=== PATIENT | male | born 1960 | race Caucasian/White ===

== ENCOUNTER 2016-09-09 15:43 | Emergency (ER) | payer OTHER ==
[2016-09-09 15:48] VITALS: BP 106/71; PULSE 106; RESP 18; TEMP 97.2
[2016-09-09] MEDS ORDERED: DOCUSATE ORAL SOLN 100 MG/10 ML CUP PO STA ×3 (15:55→16:26)
--- NOTE | 2016-09-09 16:03 | ED ---
ENT HPI - General Chief complaint: ENT Stated complaint: ear pain/trouble hearing Time Seen by Provider: 09/09/16 15:50 Source: patient, RN notes reviewed Mode of arrival: ambulatory Limitations: no limitations - History of Present Illness Initial comments: 55-year-old male presents to the emergency department with a chief complaint of bilateral serum impaction. Patient has been having this for the past week or so. Patient states he has decreased hearing to both ears. Patient denies any pain but states it does feel uncomfortable. Patient denies any other injuries. Patient denies any other complaints.Patient denies any recent fever, chills, shortness of breath, chest pain, back pain, abdominal pain, nausea vomiting, numbness or tingling, dysuria or hematuria, constipation or diarrhea, headaches or visual changes, or any other current symptoms. - Related Data Home Medications Medication Instructions Recorded Confirmed No Known Home Medications [No 09/09/16 09/09/16 Known Home Medications] Allergies Allergy/AdvReac Type Severity Reaction Status Date / Time Penicillins Allergy Rash/Hives Verified 09/09/16 15:47 Review of Systems ROS Statement: Those systems with pertinent positive or pertinent negative responses have been documented in the HPI. ROS Other: All systems not noted in ROS Statement are negative. Past Medical History Past Medical History: No Reported History History of Any Multi-Drug Resistant Organisms: None Reported Additional Past Surgical History / Comment(s): leg surgery Past Psychological History: No Psychological Hx Reported Smoking Status: Never smoker Past Alcohol Use History: None Reported Past Drug Use History: None Reported General Exam Limitations: no limitations General appearance: alert, in no apparent distress Head exam: Present: atraumatic, normocephalic, normal inspection Eye exam: Present: normal appearance, PERRL, EOMI. Absent: scleral icterus, conjunctival injection, periorbital swelling Expanded Ear exam: Present: normal external inspection TM/Canal exam: Cerumen Impaction: Right TM, Left TM Mouth exam: Present: normal external inspection Throat exam: normal inspection, tonsillar erythema Neck exam: Present: normal inspection. Absent: tenderness, meningismus, lymphadenopathy Respiratory exam: Present: normal lung sounds bilaterally. Absent: respiratory distress, wheezes, rales, rhonchi, stridor Cardiovascular Exam: Present: regular rate, normal rhythm, normal heart sounds. Absent: systolic murmur, diastolic murmur, rubs, gallop, clicks Neurological exam: Present: alert, oriented X3 Psychiatric exam: Present: normal affect, normal mood Skin exam: Present: warm, dry, intact, normal color. Absent: rash Course Vital Signs 09/09/16 15:44 Temperature 97.2 F L Pulse Rate 106 H Respiratory 18 Rate Blood Pressure 106/71 O2 Sat by Pulse 97 Oximetry Procedures - Ear Wax Removal Both Ears Cerumenolytic Used: Colace Ear Canal Irrigated by: other (PA) Ear Canal Irrigated With: ear cloth mender device Ear Canal(s) Curetted: plastic scoops Results: Re-examined: some cerumen remains TM Visible: TM(s) intact, normal appearance Ear Canal: atraumatic Patient Tolerated Procedure: well Complications: no problems Medical Decision Making - Medical Decision Making 55-year-old male presents to the emergency department with a chief complaint of bilateral serum impaction. At this time patient underwent irrigation majority of care was removed. This time we discussed. We discussed follow-up and return parameters. We discussed all patient's questions. He stated he understood the plan. At this time he will be discharged home. Disposition Clinical Impression: Bilateral impacted cerumen Disposition: HOME SELF-CARE Condition: Stable Instructions: Cerumen Impaction (ED) Additional Instructions: Please use medication as discussed. Please follow up with family doctor if symptoms have not improved over the next two days. Please return to the emergency room if your symptoms increase or worsen or for any other concerns. Referrals: None,Stated [Primary Care Provider] - 1-2 days Enoch Cano MD [STAFF PHYSICIAN] - 1-2 days Time of Disposition: 17:22
== END 2016-09-09 17:28 | disposition home or self-care (01) ==
LOC: EC 15:43
DX: H61.23 Impacted cerumen, bilateral (principal); Z88.0 Allergy status to penicillin
CPT/HCPCS: 69210; 99283

== ENCOUNTER 2019-03-03 09:06 | Emergency (ER) | payer OTHER ==
[2019-03-03 09:22] VITALS: BP 134/84; PULSE 68; RESP 18; TEMP 98.7
[2019-03-03] MEDS ORDERED: CARBAMIDE PEROXIDE 6.5% DROPS 15 ML BTL BOTH EARS STA (09:55)
--- NOTE | 2019-03-03 09:59 | ED ---
ENT HPI - General Chief complaint: ENT Stated complaint: plugged ears Time Seen by Provider: 03/03/19 09:32 Source: patient, RN notes reviewed, old records reviewed Mode of arrival: ambulatory Limitations: no limitations - History of Present Illness Initial comments: This is a 58-year-old male, who presents emergency department today for evaluation for complaints of bilateral ear congestion. He reports that his ear has been plugged for months. Patient states that he decided to come in today because he felt like it. Patient states that he is came to emergency department for an his ears cleaned. Patient states that he has a hard time hearing out of his ears. Patient states that the left ear is worse than his right. - Related Data Home Medications Medication Instructions Recorded Confirmed No Known Home Medications 09/09/16 09/09/16 Allergies Allergy/AdvReac Type Severity Reaction Status Date / Time Penicillins Allergy Rash/Hives Verified 03/03/19 09:22 Review of Systems ROS Statement: Those systems with pertinent positive or pertinent negative responses have been documented in the HPI. ROS Other: All systems not noted in ROS Statement are negative. Past Medical History Past Medical History: No Reported History History of Any Multi-Drug Resistant Organisms: None Reported Additional Past Surgical History / Comment(s): leg surgery Past Psychological History: No Psychological Hx Reported Smoking Status: Never smoker Past Alcohol Use History: None Reported Past Drug Use History: None Reported General Exam - General Exam Comments Initial Comments: 58-year-old male. Alert and oriented. No distress. Limitations: no limitations General appearance: alert, in no apparent distress Head exam: Present: atraumatic, normocephalic, normal inspection Eye exam: Present: normal appearance, PERRL, EOMI. Absent: scleral icterus, conjunctival injection, periorbital swelling ENT exam: Present: normal exam, normal oropharynx, other ( Patient has cerumen impaction bilaterally.) Neck exam: Present: normal inspection. Absent: tenderness, meningismus, lymphadenopathy Respiratory exam: Present: normal lung sounds bilaterally. Absent: respiratory distress, wheezes, rales, rhonchi, stridor Cardiovascular Exam: Present: regular rate. Absent: clicks Extremities exam: Present: normal inspection, full ROM, normal capillary refill. Absent: tenderness, pedal edema, joint swelling, calf tenderness Neurological exam: Present: alert, oriented X3 Psychiatric exam: Present: normal affect, agitated (hostile mood. ) Course Vital Signs 03/03/19 09:19 Temperature 98.7 F Pulse Rate 68 Respiratory 18 Rate Blood Pressure 134/84 O2 Sat by Pulse 99 Oximetry - Reevaluation(s) Reevaluation #1: 03/03/19 10:10 Patient is very rude to nursing staff and they attempted to irrigate his ears, drainage TV out, yelling at the water is not warm enough. We discussed to to the Patient a call matter that did not water does not get warmer as it is on automatic temperature Patient became upset. Medical Decision Making - Medical Decision Making 58-year-old male presents today for bilateral ear congestion, complaining of determine impaction. This time Patient is quite hostile. And he states that he just fell he coming in today. Patient was offered D Ross drops and irrigation. When the nurse attempted to irrigate the ears he became irate, and not tolerating well, moving around the bed. Patient Patient will be discharged at this time with the debrox drops and ENT referral. Discussed the ER is not appropriate to manage chronic ear cerumen impactions. Disposition Clinical Impression: Cerumen impaction, Mood disorder, Hostile behavior Disposition: HOME SELF-CARE Condition: Good Instructions (If sedation given, give patient instructions): Cerumen Impaction (ED) Additional Instructions: Patient is to follow-up with her nose and throat specialist for cerumen removal. He can use the Debrox drops to help loosen the cerumen prior to going to have the cerumen removed. Follow up with a PCP. Is patient prescribed a controlled substance at d/c from ED?: No Referrals: None,Stated [Primary Care Provider] - 1-2 days Phong Carranza DO [Doctor of Osteopathic Medicine] - 1-2 days Kaylin Hinds MD [STAFF PHYSICIAN] - 1-2 days Time of Disposition: 10:12
== END 2019-03-03 10:13 | disposition home or self-care (01) ==
LOC: EC 09:06
DX: H61.23 Impacted cerumen, bilateral (principal); F39 Unspecified mood [affective] disorder; R45.5 Hostility; Z88.0 Allergy status to penicillin
CPT/HCPCS: 99282

== ENCOUNTER 2019-04-30 19:39 | Emergency (ER) | payer OTHER ==
[2019-04-30 19:44] VITALS: BP 125/78; PULSE 84; RESP 20; TEMP 97.8
[2019-04-30] MEDS ORDERED: CARBAMIDE PEROXIDE 6.5% DROPS 15 ML BTL BOTH EARS STA (19:50)
--- NOTE | 2019-04-30 20:25 | ED ---
General Adult HPI - General Chief complaint: ENT Stated complaint: Wants ears cleaned Time Seen by Provider: 04/30/19 19:46 Source: patient, family Mode of arrival: ambulatory Limitations: no limitations - History of Present Illness Initial comments: 58-year-old male patient presents to the emergency department today requesting ear irrigation. Patient states that he has having discomfort and decreased hearing to both ears. Patient states he often has wax plugging his ears. He does not have a primary care physician. Does not currently have insurance. Denies any methods at home to relieve blockages. Denies any drainage from the ears. Denies fever or chills. Denies recent upper respiratory illness. - Related Data Home Medications Medication Instructions Recorded Confirmed No Known Home Medications 09/09/16 09/09/16 Allergies Allergy/AdvReac Type Severity Reaction Status Date / Time Penicillins Allergy Rash/Hives Verified 04/30/19 19:44 Review of Systems ROS Statement: Those systems with pertinent positive or pertinent negative responses have been documented in the HPI. ROS Other: All systems not noted in ROS Statement are negative. Past Medical History Past Medical History: No Reported History History of Any Multi-Drug Resistant Organisms: None Reported Additional Past Surgical History / Comment(s): leg surgery Past Psychological History: No Psychological Hx Reported Smoking Status: Never smoker Past Alcohol Use History: None Reported Past Drug Use History: None Reported General Exam Limitations: no limitations General appearance: alert, in no apparent distress, other ENT exam: Present: normal oropharynx. Absent: TM's normal bilaterally (Bilateral cerumen impaction) Respiratory exam: Present: normal lung sounds bilaterally. Absent: respiratory distress, wheezes, rales, rhonchi, stridor Cardiovascular Exam: Present: regular rate, normal rhythm, normal heart sounds. Absent: systolic murmur, diastolic murmur, rubs, gallop, clicks Neurological exam: Present: alert, oriented X3, CN II-XII intact Psychiatric exam: Present: normal affect, normal mood Skin exam: Present: warm, dry, intact, normal color. Absent: rash Course Vital Signs 04/30/19 04/30/19 19:41 21:34 Temperature 97.8 F 97.8 F Pulse Rate 84 84 Respiratory 20 20 Rate Blood Pressure 125/78 125/78 O2 Sat by Pulse 97 97 Oximetry Medical Decision Making - Medical Decision Making 58-year-old male patient presents the emergency department today for evaluation of bilateral cerumen impaction. We did use Debrox drops and attempted flushing. The wax is hardened. He will be discharged with drops and instructions to instill drops daily to loosen wax. He is educated regarding flushing is ears. He is instructed to follow up with his primary care physician for recheck in 1-2 days. Return parameters discussed in detail. He verbalizes understanding and agrees with this plan. Disposition Clinical Impression: Impacted cerumen, bilateral Disposition: HOME SELF-CARE Condition: Good Instructions (If sedation given, give patient instructions): Cerumen Impaction (ED) Additional Instructions: Use ear drops daily to loosen wax. Flush with tepid water. [facility] Return to the emergency department for any new, worsening, or concerning symptoms. Is patient prescribed a controlled substance at d/c from ED?: No [facility] [[facility]] - 1-2 days Time of Disposition: 21:30
== END 2019-04-30 21:35 | disposition home or self-care (01) ==
LOC: EC 19:39
DX: H61.23 Impacted cerumen, bilateral (principal); Z88.0 Allergy status to penicillin
CPT/HCPCS: 99283

== ENCOUNTER 2019-07-19 19:57 | Emergency (ER) | payer MEDICARE ==
[2019-07-19 20:12] VITALS: BP 119/76; PULSE 92; RESP 18; TEMP 101.6
[2019-07-19] MEDS ORDERED: IBUPROFEN 600 MG TAB PO STA (21:38)
--- NOTE | 2019-07-19 22:15 | XR ---
EXAMINATION TYPE: XR chest 2V DATE OF EXAM: 07/19/2019 COMPARISON: 03/16/2016 HISTORY: Cough TECHNIQUE: FINDINGS: Heart and mediastinum are normal. Lungs are clear. Diaphragm is normal. Bony thorax is inta ct. IMPRESSION: No active cardiopulmonary disease. No adverse change compared to old exam.
--- NOTE | 2019-07-19 22:35 | ED ---
Fever HPI - General Chief Complaint: Fever Stated Complaint: Flu Symptoms Time Seen by Provider: 07/19/19 21:32 Source: patient Mode of arrival: wheelchair Limitations: no limitations - History of Present Illness Initial Comments: Patient is a 58-year-old male presenting to emergency Department with complaints of fever, cough for 2 weeks now. He states his symptoms have gotten worse the last few days. He has not been taking any medications. He denies history of asthma or COPD. he denies abdominal pain, nausea, vomiting. He denies chest pain, shortness of breath. He denies recent travel. Patient states he's been eating and drinking as normal. He has no other complaints at this time. Upon arrival to the ER, patient was febrile at 101.2, rest of vitals are normal. - Related Data Previous Rx's Medication Instructions Recorded Azithromycin [Zithromax Z-pack] 0 mg PO DIRECTED #1 pack 07/19/19 Ibuprofen [Motrin] 600 mg PO Q8HR PRN #20 tab 07/19/19 Allergies Allergy/AdvReac Type Severity Reaction Status Date / Time Penicillins Allergy Rash/Hives Verified 07/19/19 20:11 Review of Systems ROS Statement: Those systems with pertinent positive or pertinent negative responses have been documented in the HPI. ROS Other: All systems not noted in ROS Statement are negative. Past Medical History Past Medical History: No Reported History History of Any Multi-Drug Resistant Organisms: None Reported Past Surgical History: Orthopedic Surgery Additional Past Surgical History / Comment(s): leg surgery Past Psychological History: No Psychological Hx Reported Smoking Status: Never smoker Past Alcohol Use History: None Reported Past Drug Use History: None Reported General Exam - General Exam Comments Initial Comments: GENERAL: Strong body odor, and in no acute distress. Resting comfortably. HEAD: Atraumatic, normocephalic. EYES: Pupils equal round and reactive to light, extraocular movements intact, sclera anicteric, conjunctiva are normal. ENT: TMs normal, nares patent, oropharynx clear without exudates. Moist mucous membranes. NECK: Normal range of motion, supple without lymphadenopathy or JVD. LUNGS: Breath sounds clear to auscultation bilaterally and equal. No wheezes rales or rhonchi. HEART: Regular rate and rhythm without murmurs, rubs or gallops. ABDOMEN: Soft, nontender, normoactive bowel sounds. No guarding, no rebound. No masses appreciated. : Deferred EXTREMITIES: Normal range of motion, no pitting or edema. No clubbing or cyanosis. NEUROLOGICAL: Normal speech, normal gait. PSYCH: Normal mood, normal affect. SKIN: Warm, Dry, normal turgor, no rashes or lesions noted. Limitations: no limitations Course Vital Signs 07/19/19 07/19/19 20:09 22:38 Temperature 101.6 F H Pulse Rate 92 Respiratory 18 18 Rate Blood Pressure 119/76 O2 Sat by Pulse 97 Oximetry Medical Decision Making - Medical Decision Making Patient is a 58-year-old male presenting with flulike symptoms for 2 weeks. Patient was febrile upon arrival. Chest x-ray shows no acute abnormalities. Influenza test was positive. His 50s findings with the patient. Patient was gi alexsander Motrin in the ER. He is eating and drinking. He is stable for discharge. Patient is really adamant about getting an antibiotic since he's been sick for 2 weeks. I discussed that he has a virus and that the antibiotic was not necessary however he continues to be adamant. Patient will be given azithromycin as well as prescription for ibuprofen as requested. Return parameters were discussed with the patient and he verbalized understanding. Case discussed with Dr. Estevez. - Lab Data Lab Results 07/19/19 Range/Units 20:13 Influenza Type A RNA Detected H (Not Detectd) Influenza Type B (PCR) Not Detected (Not Detectd) Disposition Clinical Impression: Influenza Disposition: HOME SELF-CARE Condition: Stable Instructions (If sedation given, give patient instructions): Influenza (ED) Additional Instructions: Please return to the Emergency Department if symptoms worsen or any other concerns. Take ibuprofen as needed for fever. Take antibiotic as prescribed. Prescriptions: Ibuprofen [Motrin] 600 mg PO Q8HR PRN #20 tab PRN Reason: Pain Azithromycin [Zithromax Z-pack] 0 mg PO DIRECTED #1 pack Is patient prescribed a controlled substance at d/c from ED?: No Referrals: None,Stated [Primary Care Provider] - 1-2 days
== END 2019-07-19 23:00 | disposition home or self-care (01) ==
LOC: EC 19:57
DX: J11.1 Influenza due to unidentified influenza virus with other respiratory manifestations (principal); Z88.0 Allergy status to penicillin
CPT/HCPCS: 71046; 87502; 99283

== ENCOUNTER 2020-04-01 18:03 | Emergency (ER) | payer MEDICARE ==
--- NOTE | 2020-04-01 18:44 | ED ---
General Adult HPI - General Chief complaint: ENT Stated complaint: ears plugged Time Seen by Provider: 04/01/20 18:05 Source: patient, RN notes reviewed, old records reviewed Mode of arrival: ambulatory Limitations: no limitations - History of Present Illness Initial comments: This is a 59-year-old male who presents to the emergency department complaining that his ears are plugged bilaterally. Patient states this happens once urinate some cleaned out once here. Patient states never attempted to do any Cleaning home with [id number] medications. Patient states his hearing is a little bit decreased but it's more muffled than anything else. Patient denies any pain. Patient denies any fever chills per patient denies any other complaints at this time. - Related Data Previous Rx's Medication Instructions Recorded Azithromycin [Zithromax Z-pack (6 0 mg PO DIRECTED #1 pack 07/19/19 tabs)] Ibuprofen [Motrin] 600 mg PO Q8HR PRN #20 tab 07/19/19 Allergies Allergy/AdvReac Type Severity Reaction Status Date / Time Penicillins Allergy Rash/Hives Verified 04/01/20 18:04 Review of Systems ROS Statement: Those systems with pertinent positive or pertinent negative responses have been documented in the HPI. ROS Other: All systems not noted in ROS Statement are negative. Past Medical History Past Medical History: No Reported History History of Any Multi-Drug Resistant Organisms: None Reported Past Surgical History: Orthopedic Surgery Additional Past Surgical History / Comment(s): leg surgery Past Psychological History: No Psychological Hx Reported Smoking Status: Never smoker Past Alcohol Use History: None Reported Past Drug Use History: None Reported General Exam - General Exam Comments Initial Comments: GENERAL Patient is well-developed and well-nourished. Patient is in mild distress. EYES Patient's pupils are equal and round. Extraocular motion is intact SKIN Unremarkable NEURO The patient is alert and oriented 3 PYSCH Patient has normal interpersonal interactions. MUSCULOSKELETAL ENT Patient's ears bilaterally are filled with cerumen Limitations: no limitations Course Vital Signs 04/01/20 18:04 Temperature 98 F Pulse Rate 92 Respiratory 18 Rate Blood Pressure 113/79 O2 Sat by Pulse 97 Oximetry Medical Decision Making - Medical Decision Making Nursing irrigated the patient's ears out. Disposition Clinical Impression: Impacted cerumen of both ears Disposition: HOME SELF-CARE Condition: Good Instructions (If sedation given, give patient instructions): Cerumen Impaction (ED) Additional Instructions: Patient should purchase [id number] ear removal wax kits. Is patient prescribed a controlled substance at d/c from ED?: No Referrals: None,Stated [Primary Care Provider] - 1-2 days Time of Disposition: 18:44
[2020-04-01 20:47] VITALS: BP 144/74; PULSE 77; RESP 20; TEMP 97.9
== END 2020-04-01 20:45 | disposition home or self-care (01) ==
LOC: EC 18:03
DX: H61.23 Impacted cerumen, bilateral (principal); Z88.0 Allergy status to penicillin
CPT/HCPCS: 99283

== ENCOUNTER 2020-05-14 09:30 | Emergency (ER) | payer MEDICARE ==
[2020-05-14 09:39] VITALS: RESP 18; TEMP 98.3
--- NOTE | 2020-05-14 10:18 | ED ---
SOB HPI - General Chief Complaint: Shortness of Breath Stated Complaint: KANWAL Time Seen by Provider: 05/14/20 09:35 Source: patient Mode of arrival: ambulatory Limitations: no limitations - History of Present Illness Initial Comments: Patient is a 59-year-old male with no past medical history presents emergency Department with reported nausea, vomiting, abdominal pain or shortness of breath. Patient reports that yesterday he did eat some cheese that he thought may have been spoiled. Subsequently afterwards he developed abdominal cramping and had approximately 5 episodes of nonbilious, nonbloody vomit. Reports that he took one of his friends Percocets for his symptoms. He did have associated shortness of breath without chest pain. Denies sick contacts with similar symptoms. The ports that he awoke this morning and his symptoms were completely gone however he still wanted to come to the emergency department to be evaluated. He denies any recent travel. No current chest pain or shortness of breath. No abdominal pain. Denies fevers or cough. No other alleviating, precipitating or modifying factors - Related Data Home Medications Medication Instructions Recorded Confirmed No Known Home Medications 05/14/20 05/14/20 Allergies Allergy/AdvReac Type Severity Reaction Status Date / Time Penicillins Allergy Rash/Hives Verified 05/14/20 11:16 Review of Systems ROS Statement: Those systems with pertinent positive or pertinent negative responses have been documented in the HPI. ROS Other: All systems not noted in ROS Statement are negative. Past Medical History Past Medical History: No Reported History History of Any Multi-Drug Resistant Organisms: None Reported Past Surgical History: Orthopedic Surgery Additional Past Surgical History / Comment(s): leg surgery Past Psychological History: No Psychological Hx Reported Smoking Status: Never smoker Past Alcohol Use History: None Reported Past Drug Use History: Marijuana General Exam Limitations: no limitations General appearance: alert, in no apparent distress Head exam: Present: atraumatic, normocephalic, normal inspection Eye exam: Present: normal appearance, PERRL, EOMI. Absent: scleral icterus, co njunctival injection, periorbital swelling ENT exam: Present: normal exam, mucous membranes moist Neck exam: Present: normal inspection. Absent: tenderness, meningismus, lymphadenopathy Respiratory exam: Present: normal lung sounds bilaterally. Absent: respiratory distress, wheezes, rales, rhonchi, stridor Cardiovascular Exam: Present: regular rate, normal rhythm, normal heart sounds. Absent: systolic murmur, diastolic murmur, rubs, gallop, clicks GI/Abdominal exam: Present: soft, normal bowel sounds. Absent: distended, tenderness, guarding, rebound, rigid Extremities exam: Present: normal inspection, full ROM, normal capillary refill. Absent: tenderness, pedal edema, joint swelling, calf tenderness Back exam: Present: normal inspection Neurological exam: Present: alert, oriented X3, CN II-XII intact Psychiatric exam: Present: normal affect, normal mood Skin exam: Present: warm, dry, intact, normal color. Absent: rash Course Vital Signs 05/14/20 05/14/20 05/14/20 09:33 10:38 11:42 Temperature 98.3 F Pulse Rate 100 82 73 Respiratory 18 18 18 Rate Blood Pressure 148/76 126/82 119/80 O2 Sat by Pulse 96 97 99 Oximetry Medical Decision Making - Medical Decision Making Upon arrival patient is placed into room 2. A thorough history and physical exam was performed. 12-lead EKG was performed. Peripheral IV is established. The patient was started on 2 L bolus of normal saline. Laboratory studies were conducted. White count is 16.2. Lactic acid 3.8. Glucose elevated at 245. Coronavirus is not detected. Chest x-ray demonstrates no acute process. Results are discussed the patient. States he feels comfortable for discharge home at this time as he is not currently symptomatic. I did recommend that the patient follow up with his primary care doctor due to his elevated glucose. Patient reports that he does not have a primary care doctor and normally does not care to see one. I did inform him of the concern for uncontrolled glucose levels for which the patient does understand the risks. [facility] Patient's will be discharged home at this time. Return to the emergency department should he have any new or worsening symptoms. Patient was in agreement with this treatment plan and he was discharged home in stable condition - Lab Data Result diagrams: 05/14/20 10:21 05/14/20 10: Lab Results 05/14/20 05/14/20 05/14/20 Range/Units 10:21 10:21 10:21 WBC 16.2 H (3.8-10.6) k/uL RBC 5.49 (4.30-5.90) m/uL Hgb 15.5 (13.0-17.5) gm/dL Hct 47.2 (39.0-53.0) % MCV 86.0 (80.0-100.0) fL MCH 28.2 (25.0-35.0) pg MCHC 32.8 (31.0-37.0) g/dL RDW 14.8 (11.5-15.5) % Plt Count 270 (150-450) k/uL MPV 6.5 Neutrophils % 91 % Lymphocytes % 6 % Monocytes % 2 % Eosinophils % 1 % Basophils % 1 % Neutrophils # 14.7 H (1.3-7.7) k/uL Lymphocytes # 0.9 L (1.0-4.8) k/uL Monocytes # 0.4 (0-1.0) k/uL Eosinophils # 0.1 (0-0.7) k/uL Basophils # 0.1 (0-0.2) k/uL PT 10.4 (9.0-12.0) sec INR 1.0 (<1.2) APTT 24.0 (22.0-30.0) sec Sodium 135 L (137-145) mmol/L Potassium 4.6 (3.5-5.1) mmol/L Chloride 101 (98-107) mmol/L Carbon Dioxide 25 (22-30) mmol/L Anion Gap 9 mmol/L BUN 16 (9-20) mg/dL Creatinine 0.74 (0.66-1.25) mg/dL Est GFR (CKD-EPI)AfAm >90 (>60 ml/min/1.73 sqM) Est GFR (CKD-EPI)NonAf >90 (>60 ml/min/1.73 sqM) Glucose 245 H (74-99) mg/dL Lactic Ac Sepsis Rflx Plasma Lactic Acid Jer (0.7-2.0) mmol/L Calcium 9.7 (8.4-10.2) mg/dL Total Bilirubin 0.7 (0.2-1.3) mg/dL AST 27 (17-59) U/L ALT 26 (4-49) U/L Alkaline Phosphatase 81 (38-126) U/L Troponin I (0.000-0.034) ng/mL NT-Pro-B Natriuret Pep pg/mL Total Protein 7.3 (6.3-8.2) g/dL Albumin 4.1 (3.5-5.0) g/dL Lipase 136 (23-300) U/L Coronavirus (PCR) (Not Detectd) 05/14/20 05/14/20 05/14/20 Range/Units 10:21 10:21 10:21 WBC (3.8-10.6) k/uL RBC (4.30-5.90) m/uL Hgb (13.0-17.5) gm/dL Hct (39.0-53.0) % MCV (80.0-100.0) fL MCH (25.0-35.0) pg MCHC (31.0-37.0) g/dL RDW (11.5-15.5) % Plt Count (150-450) k/uL MPV Neutrophils % % Lymphocytes % % Monocytes % % Eosinophils % % Basophils % % Neutrophils # (1.3-7.7) k/uL Lymphocytes # (1.0-4.8) k/uL Monocytes # (0-1.0) k/uL Eosinophils # (0-0.7) k/uL Basophils # (0-0.2) k/uL PT (9.0-12.0) sec INR (<1.2) APTT (22.0-30.0) sec Sodium (137-145) mmol/L Potassium (3.5-5.1) mmol/L Chloride (98-107) mmol/L Carbon Dioxide (22-30) mmol/L Anion Gap mmol/L BUN (9-20) mg/dL Creatinine (0.66-1.25) mg/dL Est GFR (CKD-EPI)AfAm (>60 ml/min/1.73 sqM) Est GFR (CKD-EPI)NonAf (>60 ml/min/1.73 sqM) Glucose (74-99) mg/dL Lactic Ac Sepsis Rflx Plasma Lactic Acid Jer 3.8 H* (0.7-2.0) mmol/L Calcium (8.4-10.2) mg/dL Total Bilirubin (0.2-1.3) mg/dL AST (17-59) U/L ALT (4-49) U/L Alkaline Phosphatase (38-126) U/L Troponin I <0.012 (0.000-0.034) ng/mL NT-Pro-B Natriuret Pep 108 pg/mL Total Protein (6.3-8.2) g/dL Albumin (3.5-5.0) g/dL Lipase (23-300) U/L Coronavirus (PCR) (Not Detectd) 05/14/20 05/14/20 Range/Units 10:51 11:41 WBC (3.8-10.6) k/uL RBC (4.30-5.90) m/uL Hgb (13.0-17.5) gm/dL Hct (39.0-53.0) % MCV (80.0-100.0) fL MCH (25.0-35.0) pg MCHC (31.0-37.0) g/dL RDW (11.5-15.5) % Plt Count (150-450) k/uL MPV Neutrophils % % Lymphocytes % % Monocytes % % Eosinophils % % Basophils % % Neutrophils # (1.3-7.7) k/uL Lymphocytes # (1.0-4.8) k/uL Monocytes # (0-1.0) k/uL Eosinophils # (0-0.7) k/uL Basophils # (0-0.2) k/uL PT (9.0-12.0) sec INR (<1.2) APTT (22.0-30.0) sec Sodium (137-145) mmol/L Potassium (3.5-5.1) mmol/L Chloride (98-107) mmol/L Carbon Dioxide (22-30) mmol/L Anion Gap mmol/L BUN (9-20) mg/dL Creatinine (0.66-1.25) mg/dL Est GFR (CKD-EPI)AfAm (>60 ml/min/1.73 sqM) Est GFR (CKD-EPI)NonAf (>60 ml/min/1.73 sqM) Glucose (74-99) mg/dL Lactic Ac Sepsis Rflx Y Plasma Lactic Acid Jer (0.7-2.0) mmol/L Calcium (8.4-10.2) mg/dL Total Bilirubin (0.2-1.3) mg/dL AST (17-59) U/L ALT (4-49) U/L Alkaline Phosphatase (38-126) U/L Troponin I (0.000-0.034) ng/mL NT-Pro-B Natriuret Pep pg/mL Total Protein (6.3-8.2) g/dL Albumin (3.5-5.0) g/dL Lipase (23-300) U/L Coronavirus (PCR) Not Detected (Not Detectd) - EKG Data EKG Comments: EKG demonstrates normal sinus rhythm with a ventricular rate of 87. OK interval 174. QRS 138. QTC of 498. Right bundle branch block. No acute ST segment elevations. Disposition Clinical Impression: Nausea and vomiting Disposition: HOME SELF-CARE Condition: Stable Instructions (If sedation given, give patient instructions): Acute Nausea and Vomiting (ED) Additional Instructions: Please follow up with your PCP in 2-4 days. You need to have your sugars checked. Return to the emergency room for any new or worsening symptoms Is patient prescribed a controlled substance at d/c from ED?: No [facility]errals: [facility] [[facility] - 1-2 days Time of Disposition: 12:45
[2020-05-14 10:33] LABS: Basophils # (A) 0.1 k/uL (0-0.2); Basophils % (A) 1 %; Eosinophils # (A) 0.1 k/uL (0-0.7); Eosinophils % (A) 1 %; HCT 47.2 % (39.0-53.0); HGB 15.5 gm/dL (13.0-17.5); Lymphocytes # (A) 0.9 k/uL (1.0-4.8); Lymphocytes % (A) 6 %; MCH 28.2 pg (25.0-35.0); MCHC 32.8 g/dL (31.0-37.0); Mean Platelet Volume 6.5; Monocytes # (A) 0.4 k/uL (0-1.0); Monocytes % (A) 2 %; Neutrophils # (A) 14.7 k/uL (1.3-7.7); Neutrophils % (A) 91 %; Platelet Count 270 k/uL (150-450); RBC 5.49 m/uL (4.30-5.90); RDW 14.8 % (11.5-15.5); WBC 16.2 k/uL (3.8-10.6)
--- NOTE | 2020-05-14 10:33 | XR ---
EXAMINATION TYPE: XR chest 2V DATE OF EXAM: 05/14/2020 COMPARISON: 07/19/2019 INDICATION: Difficulty breathing TECHNIQUE: Frontal and lateral views of the chest are obtained. FINDINGS: The heart size is normal. The pulmonary vasculature is normal. The lungs are clear. IMPRESSION: 1. No acute pulmonary process.
[2020-05-14 10:41] LABS: ALT 26 U/L (4-49); AST 27 U/L (17-59); African American GFR (CKD) >90 (>60 ml/min/1.73 sqM); Albumin 4.1 g/dL (3.5-5.0); Alkaline Phosphatase 81 U/L (38-126); Anion Gap 9 mmol/L; Blood Urea Nitrogen 16 mg/dL (9-20); Calcium 9.7 mg/dL (8.4-10.2); Carbon Dioxide 25 mmol/L (22-30); Chloride 101 mmol/L (98-107); Glucose 245 mg/dL (74-99); Lipase 136 U/L (23-300); Non-African American GFR(CKD) >90 (>60 ml/min/1.73 sqM); Potassium 4.6 mmol/L (3.5-5.1); Sodium 135 mmol/L (137-145); Total Bilirubin 0.7 mg/dL (0.2-1.3); Total Protein 7.3 g/dL (6.3-8.2)
[2020-05-14] MEDS ORDERED: SODIUM CHLORIDE 0.9% 2,000 ML IV ONE (10:53)
[2020-05-14 10:55] LABS: Prothrombin Time 10.4 sec (9.0-12.0)
[2020-05-14 11:43] VITALS: BP 119/80; PULSE 73
== END 2020-05-14 12:56 | disposition home or self-care (01) ==
LOC: EC 09:30
DX: R11.2 Nausea with vomiting, unspecified (principal); R73.02 Impaired glucose tolerance (oral); R06.02 Shortness of breath; R10.9 Unspecified abdominal pain; Z88.0 Allergy status to penicillin; Z20.822 Contact with and (suspected) exposure to COVID-19
CPT/HCPCS: 36415; 71046; 80053; 83605; 83690; 83880; 84484; 85025; 85610; 85730; 87635; 93005; 96360; 99285

== ENCOUNTER 2020-10-23 10:42 | Emergency (ER) | payer MEDICARE ==
[2020-10-23 11:00] VITALS: BP 132/67; PULSE 57; TEMP 98.4
[2020-10-23] MEDS ORDERED: ONDANSETRON 4 MG/2 ML VIAL IVP STA (11:22)
[2020-10-23] MEDS ORDERED: MORPHINE SULFATE 2 MG/ML SYRINGE IVP STA (11:22)
[2020-10-23] MEDS ORDERED: KETOROLAC 15 MG/ML 1 ML VIAL IVP STA (11:22)
[2020-10-23] MEDS ORDERED: SODIUM CHLORIDE 0.9% 1,000 ML IV STA (11:22)
[2020-10-23 12:26] LABS: Appearance,Urine Clear (Clear); Bilirubin,Urine Negative (Negative); Blood,Urine Negative (Negative); Color,Urine Yellow; Glucose,Urine (UA) Negative (Negative); Ketones,Urine Negative (Negative); Leukocyte Esterase,Urine Negative (Negative); Nitrite,Urine Negative (Negative); Protein,Urine Negative (Negative); Urobilinogen,Urine <2.0 mg/dL (<2.0)
[2020-10-23 12:39] LABS: ALT 24 U/L (4-49); AST 31 U/L (17-59); African American GFR (CKD) >90 (>60 ml/min/1.73 sqM); Albumin 4.1 g/dL (3.5-5.0); Alcohol <10 mg/dL; Alkaline Phosphatase 83 U/L (38-126); Amphetamine Screen,Urine Not Detected (NotDetected); Amylase 98 U/L (30-110); Anion Gap 9 mmol/L; Barbiturate Screen,Urine Not Detected (NotDetected); Benzodiazepines Screen,Urine Not Detected (NotDetected); Blood Urea Nitrogen 16 mg/dL (9-20); Calcium 9.4 mg/dL (8.4-10.2); Carbon Dioxide 24 mmol/L (22-30); Chloride 104 mmol/L (98-107); Cocaine Screen,Urine Not Detected (NotDetected); Glucose 174 mg/dL (74-99); Lipase 174 U/L (23-300); Methadone Screen, Urine Not Detected (NotDetected); Non-African American GFR(CKD) >90 (>60 ml/min/1.73 sqM); Opiate Screen,Urine Not Detected (NotDetected); Oxycodone Screen, Urine Not Detected (NotDetected); Phencyclidine Screen,Urine Not Detected (NotDetected); Potassium 4.8 mmol/L (3.5-5.1); Sodium 137 mmol/L (137-145); Total Bilirubin 0.5 mg/dL (0.2-1.3); Total Protein 7.1 g/dL (6.3-8.2); Tricyclic Antidepressant,Urine Not Detected (NotDetected); Urn Cannabinoid Scrn Not Detected (NotDetected)
[2020-10-23 12:59] LABS: Basophils % (A) 0 %; Eosinophils % (A) 1 %; HCT 47.2 % (39.0-53.0); HGB 16.2 gm/dL (13.0-17.5); Lymphocytes # (A) 0.6 k/uL (1.0-4.8); Lymphocytes % (A) 7 %; MCH 30.3 pg (25.0-35.0); MCHC 34.4 g/dL (31.0-37.0); MCV 88.2 fL (80.0-100.0); Mean Platelet Volume 7.6; Monocytes # (A) 0.4 k/uL (0-1.0); Monocytes % (A) 4 %; Neutrophils # (A) 7.5 k/uL (1.3-7.7); Neutrophils % (A) 88 %; Platelet Count 265 k/uL (150-450); RBC 5.35 m/uL (4.30-5.90); RDW 14.5 % (11.5-15.5); WBC 8.6 k/uL (3.8-10.6)
[2020-10-23 13:00] LABS: INR 0.9 (<1.2); Partial Thromboplastin Time 22.3 sec (22.0-30.0); Prothrombin Time 9.7 sec (9.0-12.0)
--- NOTE | 2020-10-23 13:08 | CT ---
EXAMINATION TYPE: CT abdomen pelvis w con DATE OF EXAM: 10/23/2020 COMPARISON: No prior studies HISTORY: Abdomen pain CT DLP: 1280.3 mGycm Automated exposure control for dose reduction was used. TECHNIQUE: Helical acquisition of images was performed from the lung bases through the pelvis. CONTRAST: Performed without Oral Contrast and with IV Contrast, patient injected with 100 mL of Isovue 300. FINDINGS: LUNG BASES: There is bibasilar atelectasis. LIVER/GB: No significant abnormality is appreciated. PANCREAS: No significant abnormality is seen. SPLEEN: No significant abnormality is seen. ADRENALS: No significant abnormality is seen. KIDNEYS: Bilateral parapelvic cysts are seen. FREE AIR: No free air is visualized. RETROPERITONEAL ADENOPATHY: None visualized REPRODUCTIVE ORGANS: No significant abnormality is seen URINARY BLADDER: No significant abnormality is seen. PELVIC ADENOPATHY: None visualized. OSSEOUS STRUCTURES: Degenerative changes are seen in the bones. BOWEL: No significant abnormality is seen. OTHER: There is a small fat-containing periumbilical hernia. IMPRESSION: NO DEFINITE ACUTE ABNORMALITY. CHRONIC CHANGES, DESCRIBED.
--- NOTE | 2020-10-23 13:21 | ED ---
Abdominal Pain HPI - General Chief Complaint: Abdominal Pain Stated Complaint: abd pain Time Seen by Provider: 10/23/20 11:14 Source: patient Mode of arrival: wheelchair Limitations: no limitations - History of Present Illness Initial Comments: Patient is a 59-year-old male presenting to the emergency Department with complaints of nausea, vomiting, abdominal pain since yesterday. He states he thinks he ate some bad food. Patient is uncooperative, is being rude to staff. Hard time answering questions because he states "I'm just so uncomfortable." He denies any fevers or chills, no abdominal surgeries in the past. He denies any chest pain or shortness of breath, no dysuria. He has no further complaints at this time. - Related Data Previous Rx's Medication Instructions Recorded Dicyclomine [Bentyl] 20 mg PO TID #30 tablet 10/23/20 Allergies Allergy/AdvReac Type Severity Reaction Status Date / Time Penicillins Allergy Rash/Hives Verified 10/23/20 11:00 Review of Systems ROS Statement: Those systems with pertinent positive or pertinent negative responses have been documented in the HPI. ROS Other: All systems not noted in ROS Statement are negative. Past Medical History Past Medical History: No Reported History History of Any Multi-Drug Resistant Organisms: None Reported Past Surgical History: Orthopedic Surgery Additional Past Surgical History / Comment(s): leg surgery Past Psychological History: No Psychological Hx Reported Smoking Status: Never smoker Past Alcohol Use History: None Reported Past Drug Use History: Marijuana General Exam - General Exam Comments Initial Comments: GENERAL: Patient is well-developed and well-nourished. Patient is nontoxic and in mild distress. HEAD: Atraumatic, normocephalic. EYES: Pupils equal round and reactive to light, extraocular movements intact, sclera anicteric, conjunctiva are normal. Eyelids were unremarkable. ENT: TMs normal, nares patent, oropharynx clear without exudates. Moist mucous membranes. NECK: Normal range of motion, supple without lymphadenopathy or JVD. LUNGS: Unlabored respirations. Breath sounds clear to auscultation bilaterally and equal. No wheezes rales or rhonchi. HEART: Regular rate and rhythm without murmurs, rubs or gallops. ABDOMEN: Soft, generalized tenderness all over, no specific area, normoactive bowel sounds. No guarding, no rebound. No masses appreciated. : Deferred MUSCULOSKELETAL: Normal extremities with adequate strength and normal range of motion, no pitting or edema. No clubbing or cyanosis. NEUROLOGICAL: Patient is alert and oriented x 3. Motor and sensory are also intact. Cranial nerves II through XII grossly intact. Symmetrical smile. Normal speech, normal gait. PSYCH: Normal mood, normal affect. SKIN: Warm, Dry, normal turgor, no rashes or lesions noted. Limitations: no limitations Course Vital Signs 10/23/20 10:58 Temperature 98.4 F Pulse Rate 57 L Respiratory 18 Rate Blood Pressure 132/67 O2 Sat by Pulse 98 Oximetry Medical Decision Making - Medical Decision Making Patient is a 59-year-old male here for nausea and vomiting, abdominal pain since yesterday. He thinks he ate some bad food. Vital signs are stable, lab work is within normal limits, urine is normal. CT the abdomen and pelvis reveals no acute abnormality. Patient received pain meds, fluids, has been resting completely. Patient has been very rude in the ER, uncooperative. I discussed with him this most likely food poisoning versus viral stomach bug. He is asking for pain medicine to go home with. At a state we do not prescribe pain medicine for food poisoning. I will give him a prescription for Bentyl for abdominal cramping. He is stable for discharge, he is in agreement with this plan of care. Return parameters were discussed with him and he verbalized understanding. Case discussed with Dr. Lowe. - Lab Data Result diagrams: 10/23/20 12:00 10/23/20 12:00 Lab Results 10/23/20 10/23/20 10/23/20 Range/Units 12:00 12:00 12:00 WBC 8.6 (3.8-10.6) k/uL RBC 5.35 (4.30-5.90) m/uL Hgb 16.2 (13.0-17.5) gm/dL Hct 47.2 (39.0-53.0) % MCV 88.2 (80.0-100.0) fL MCH 30.3 (25.0-35.0) pg MCHC 34.4 (31.0-37.0) g/dL RDW 14.5 (11.5-15.5) % Plt Count 265 (150-450) k/uL MPV 7.6 Neutrophils % 88 % Lymphocytes % 7 % Monocytes % 4 % Eosinophils % 1 % Basophils % 0 % Neutrophils # 7.5 (1.3-7.7) k/uL Lymphocytes # 0.6 L (1.0-4.8) k/uL Monocytes # 0.4 (0-1.0) k/uL Eosinophils # 0.0 (0-0.7) k/uL Basophils # 0.0 (0-0.2) k/uL PT 9.7 (9.0-12.0) sec INR 0.9 (<1.2) APTT 22.3 (22.0-30.0) sec Sodium (137-145) mmol/L Potassium (3.5-5.1) mmol/L Chloride (98-107) mmol/L Carbon Dioxide (22-30) mmol/L Anion Gap mmol/L BUN (9-20) mg/dL Creatinine (0.66-1.25) mg/dL Est GFR (CKD-EPI)AfAm (>60 ml/min/1.73 sqM) Est GFR (CKD-EPI)NonAf (>60 ml/min/1.73 sqM) Glucose (74-99) mg/dL Plasma Lactic Acid Jer (0.7-2.0) mmol/L Calcium (8.4-10.2) mg/dL Total Bilirubin (0.2-1.3) mg/dL AST (17-59) U/L ALT (4-49) U/L Alkaline Phosphatase (38-126) U/L Total Protein (6.3-8.2) g/dL Albumin (3.5-5.0) g/dL Amylase (30-110) U/L Lipase (23-300) U/L Urine Color Yellow Urine Appearance Clear (Clear) Urine pH 8.0 (5.0-8.0) Ur Specific [place] 1.020 (1.001-1.035) Urine Protein Negative (Negative) Urine Glucose (UA) Negative (Negative) Urine Ketones Negative (Negative) Urine Blood Negative (Negative) Urine Nitrite Negative (Negative) Urine Bilirubin Negative (Negative) Urine Urobilinogen <2.0 (<2.0) mg/dL Ur Leukocyte Esterase Negative (Negative) Urine Opiates Screen (NotDetected) Ur Oxycodone Screen (NotDetected) Urine Methadone Screen (NotDetected) Ur Propoxyphene Screen (NotDetected) Ur Barbiturates Screen (NotDetected) U Tricyclic Antidepress (NotDetected) Ur Phencyclidine Scrn (NotDetected) Ur Amphetamines Screen (NotDetected) U Methamphetamines Scrn (NotDetected) U Benzodiazepines Scrn (NotDetected) Urine Cocaine Screen (NotDetected) U Marijuana (THC) Screen (NotDetected) Serum Alcohol mg/dL 10/23/20 10/23/20 10/23/20 Range/Units 12:00 12:00 12:00 WBC (3.8-10.6) k/uL RBC (4.30-5.90) m/uL Hgb (13.0-17.5) gm/dL Hct (39.0-53.0) % MCV (80.0-100.0) fL MCH (25.0-35.0) pg MCHC (31.0-37.0) g/dL RDW (11.5-15.5) % Plt Count (150-450) k/uL MPV Neutrophils % % Lymphocytes % % Monocytes % % Eosinophils % % Basophils % % Neutrophils # (1.3-7.7) k/uL Lymphocytes # (1.0-4.8) k/uL Monocytes # (0-1.0) k/uL Eosinophils # (0-0.7) k/uL Basophils # (0-0.2) k/uL PT (9.0-12.0) sec INR (<1.2) APTT (22.0-30.0) sec Sodium 137 (137-145) mmol/L Potassium 4.8 (3.5-5.1) mmol/L Chloride 104 (98-107) mmol/L Carbon Dioxide 24 (22-30) mmol/L Anion Gap 9 mmol/L BUN 16 (9-20) mg/dL Creatinine 0.76 (0.66-1.25) mg/dL Est GFR (CKD-EPI)AfAm >90 (>60 ml/min/1.73 sqM) Est GFR (CKD-EPI)NonAf >90 (>60 ml/min/1.73 sqM) Glucose 174 H (74-99) mg/dL Plasma Lactic Acid Jer 1.6 (0.7-2.0) mmol/L Calcium 9.4 (8.4-10.2) mg/dL Total Bilirubin 0.5 (0.2-1.3) mg/dL AST 31 (17-59) U/L ALT 24 (4-49) U/L Alkaline Phosphatase 83 (38-126) U/L Total Protein 7.1 (6.3-8.2) g/dL Albumin 4.1 (3.5-5.0) g/dL Amylase 98 (30-110) U/L Lipase 174 (23-300) U/L Urine Color Urine Appearance (Clear) Urine pH (5.0-8.0) Ur Specific [place] (1.001-1.035) Urine Protein (Negative) Urine Glucose (UA) (Negative) Urine Ketones (Negative) Urine Blood (Negative) Urine Nitrite (Negative) Urine Bilirubin (Negative) Urine Urobilinogen (<2.0) mg/dL Ur Leukocyte Esterase (Negative) Urine Opiates Screen Not Detected (NotDetected) Ur Oxycodone Screen Not Detected (NotDetected) Urine Methadone Screen Not Detected (NotDetected) Ur Propoxyphene Screen Not Detected (NotDetected) Ur Barbiturates Screen Not Detected (NotDetected) U Tricyclic Antidepress Not Detected (NotDetected) Ur Phencyclidine Scrn Not Detected (NotDetected) Ur Amphetamines Screen Not Detected (NotDetected) U Methamphetamines Scrn Not Detected (NotDetected) U Benzodiazepines Scrn Not Detected (NotDetected) Urine Cocaine Screen Not Detected (NotDetected) U Marijuana (THC) Screen Not Detected (NotDetected) Serum Alcohol <10 mg/dL Disposition Clinical Impression: Abdominal pain, Gastroenteritis Disposition: HOME SELF-CARE Condition: Stable Instructions (If sedation given, give patient instructions): Abdominal Pain (ED) Additional Instructions: Please return to the Emergency Department if symptoms worsen or any other concerns. May take Bentyl for abdominal cramping. Please follow up with primary care physician. Prescriptions: Dicyclomine [Bentyl] 20 mg PO TID #30 tablet Is patient prescribed a controlled substance at d/c from ED?: No Referrals: None,Stated [Primary Care Provider] - 1-2 days Time of Disposition: 13:21
[2020-10-23 13:52] VITALS: RESP 18
== END 2020-10-23 13:52 | disposition home or self-care (01) ==
LOC: EC 10:42
DX: K52.9 Noninfective gastroenteritis and colitis, unspecified (principal); Z88.0 Allergy status to penicillin
CPT/HCPCS: 96374 ×2; 96375 ×2; 99284 ×2; 36415; 80053; 82150; 83605; 83690; 85025; 85610; 85730; 81003; 80306; 74177; G0480; J2405; J2270; J1885; Q9967; 80320

== ENCOUNTER 2021-01-05 15:18 | Emergency (ER) | payer MEDICARE ==
[2021-01-05 15:22] VITALS: BP 123/76; PULSE 109; RESP 18; TEMP 97.9
--- NOTE | 2021-01-05 15:46 | ED ---
ENT HPI - General Chief complaint: ENT Stated complaint: Dizziness, ear pain Time Seen by Provider: 01/05/21 15:25 Source: patient Mode of arrival: wheelchair Limitations: no limitations - History of Present Illness Initial comments: Terrance at the 10-year-old male who presents to the emergency Department today with complaint of both of his ears are blocked. He states he's had remained impaction the past requiring his ears to be washed out states he continued to today. No pain. Does feel like his hearing is decreased. - Related Data Home Medications Medication Instructions Recorded Confirmed No Known Home Medications 01/05/21 01/05/21 Allergies Allergy/AdvReac Type Severity Reaction Status Date / Time Penicillins Allergy Rash/Hives Verified 01/05/21 16:09 Review of Systems ROS Statement: Those systems with pertinent positive or pertinent negative responses have been documented in the HPI. ROS Other: All systems not noted in ROS Statement are negative. Past Medical History Past Medical History: No Reported History History of Any Multi-Drug Resistant Organisms: None Reported Past Surgical History: Orthopedic Surgery Additional Past Surgical History / Comment(s): leg surgery Past Psychological History: No Psychological Hx Reported Smoking Status: Never smoker Past Alcohol Use History: None Reported Past Drug Use History: Marijuana General Exam - General Exam Comments Initial Comments: Physical Exam GENERAL: Patient is well-developed and well-nourished. Patient is nontoxic and well-hydrated and is in no distress. HENT: Normocephalic, Atraumatic. Cerumen impaction bilaterally EYES: PERRL, EOMI PULMONARY: Unlabored respirations. CARDIOVASCULAR: RRR Warm and well perfused extremities ABDOMEN: Non-distended SKIN: No rashes or bruising : Deferred NEUROLOGIC: Alert and oriented Normal speech Normal gait MUSCULOSKELETAL: Moving all extremities with no apparent injury PSYCHIATRIC: No SI/HI Limitations: no limitations Course Vital Signs 01/05/21 15:19 Temperature 97.9 F Pulse Rate 109 H Respiratory 18 Rate Blood Pressure 123/76 O2 Sat by Pulse 96 Oximetry Procedures - Ear Wax Removal Right Ear Ear Canal Irrigated by: Ear Canal Irrigated With: warm saline using syringe/angiocath, warm saline with H2O2 using syringe/angiocath, [place] Ear Canal(s) Curetted: plastic scoops, plastic loops Results: Re-examined: some cerumen remains TM Visible: TM(s) intact, normal appearance Ear Canal: atraumatic Patient Tolerated Procedure: well Complications: no problems Medical Decision Making - Medical Decision Making Patient was seen, the right ear was irrigated, significant amount of cerumen was removed patient reported feeling much better loss pressure was hearing better, some cerumen remained in place the patient was comfortable with plan for discharge home. I did offer to irrigate the left ear however patient was eager for discharge home. Patient was advised to place Dobrex solution in the ear and follow with primary care for reevaluation Disposition Clinical Impression: Impacted cerumen, bilateral Disposition: HOME SELF-CARE Condition: Stable Additional Instructions: Use Dobrex drops in the ears bilaterally and follow up with PCP for re- evaluation, I suspect you will need your ears irrigated again in the near future. Is patient prescribed a controlled substance at d/c from ED?: No Referrals: None,Stated [Primary Care Provider] - 1-2 days
== END 2021-01-05 17:05 | disposition home or self-care (01) ==
LOC: EC 15:18
DX: H61.23 Impacted cerumen, bilateral (principal); F12.90 Cannabis use, unspecified, uncomplicated; Z88.0 Allergy status to penicillin
CPT/HCPCS: 69210; 99282

== ENCOUNTER 2023-01-01 20:39 | Observation (INO) | payer MEDICARE ==
--- NOTE | 2023-01-01 21:43 | ED ---
Lower Extremity Injury HPI - General Chief Complaint: Extremity Injury, Lower Stated Complaint: TOE INFECTION Time Seen by Provider: 01/01/23 21:23 Source: patient Mode of arrival: wheelchair Limitations: no limitations - History of Present Illness Initial Comments: 62-year-old male presenting with chief complaint of infection to the right great toe. Patient has had increasing swelling and redness ongoing for the last week. Patient states that he has bumped his toe several times throughout the week. No numbness or tingling. No history of diabetes. - Related Data Home Medications Medication Instructions Recorded Confirmed No Known Home Medications 01/05/21 01/05/21 Allergies Allergy/AdvReac Type Severity Reaction Status Date / Time Penicillins Allergy Rash/Hives Verified 01/01/23 20:56 Review of Systems ROS Statement: Those systems with pertinent positive or pertinent negative responses have been documented in the HPI. ROS Other: All systems not noted in ROS Statement are negative. Past Medical History Past Medical History: No Reported History History of Any Multi-Drug Resistant Organisms: None Reported Past Surgical History: Orthopedic Surgery Additional Past Surgical History / Comment(s): leg surgery Past Psychological History: No Psychological Hx Reported Smoking Status: Never smoker Past Alcohol Use History: None Reported Past Drug Use History: Marijuana General Exam Limitations: no limitations General appearance: alert, in no apparent distress Head exam: Present: atraumatic, normocephalic, normal inspection Eye exam: Present: normal appearance, EOMI. Absent: scleral icterus, periorbital swelling Neck exam: Present: normal inspection, full ROM Respiratory exam: Absent: respiratory distress Neurological exam: Present: alert, oriented X3, CN II-XII intact Psychiatric exam: Present: normal affect, normal mood Skin exam: Present: erythema (Right great toe) Course Vital Signs 01/01/23 20:52 Temperature 98.3 F Pulse Rate 81 Respiratory 20 Rate Blood Pressure 145/79 O2 Sat by Pulse 99 Oximetry Medical Decision Making - Medical Decision Making Was pt. sent in by a medical professional or institution ([facility], [facility], urgent care, hospital, or intermediate...) When possible be specific @ -No Did you speak to anyone other than the patient for history (EMS, parent, family, police, friend...)? What history was obtained from this source @ -No Did you review nursing and triage notes (agree or disagree)? Why? @ -I reviewed and agree with nursing and triage notes Were old charts reviewed (outside hosp., previous admission, EMS record, old EKG, old radiological studies, urgent care reports/EKG's, intermediate records)? Report findings @ -No old charts were reviewed Differential Diagnosis (chest pain, altered mental status, abdominal pain women, abdominal pain men, vaginal bleeding, weakness, fever, dyspnea, syncope, headache, dizziness, GI bleed, back pain, seizure, CVA, palpatations, mental health, musculoskeletal)? @ -Differential Musculoskeletal Muscular strain, contusion, ligament sprain, fracture, arthritis, septic arthritis, bursitis, cellulitis, muscle spasm, nerve compression, DVT, arterial occlusion, herpes zoster, electrolyte abnormality, tumor.... This is not meant to be in all inclusive list EKG interpreted by me (3pts min.). @ -As above X-rays interpreted by me (1pt min.). @ -X-ray of the right great toe shows cellulitis, findings suggestive of osteomyelitis CT interpreted by me (1pt min.). @ -None done U/S interpreted by me (1pt. min.). @ -None done What testing was considered but not performed or refused? (CT, X-rays, U/S, labs)? Why? @ -None What meds were considered but not given or refused? Why? @ -None Did you discuss the management of the patient with other professionals (professionals i.e. , PA, DBAS, lab, RT, psych nurse, social work therapist, cash checker, teacher, chemistry technical officer, nurse outreach case manager)? Give summary @ -I spoke with Dr. Salvador who accepted admission Was smoking cessation discussed for >3mins.? @ -No Was critical care preformed (if so, how long)? @ -No Were there social determinants of health that impacted care today? How? (Homelessness, low income, unemployed, alcoholism, drug addiction, transportation, low edu. Level, literacy, decrease access to med. care, senior care, rehab)? @ -No Was there de-escalation of care discussed even if they declined (Discuss DNR or withdrawal of care, Hospice)? DNR status @ -No What co-morbidities impacted this encounter? (DM, HTN, Smoking, COPD, CAD, Cancer, CVA, ARF, Chemo, Hep., AIDS, mental health diagnosis, sleep apnea, morbid obesity)? @ -None Was patient admitted / discharged? Hospital course, mention meds given and route, prescriptions, significant lab abnormalities, going to OR and other pertinent info. @ -62-year-old male presenting with chief complaint of suspected infection of the right great toe. Lab work shows no leukocytosis or anemia. X-ray is suggestive of osteomyelitis. Patient will be admitted was started on Rocephin and vancomycin. He is agreeable with this plan. I discussed this case with my attending Dr. Sheehan Undiagnosed new problem with uncertain prognosis? @ -No Drug Therapy requiring intensive monitoring for toxicity (Heparin, Nitro, Insulin, Cardizem)? @ -No Were any procedures done? @ -No Diagnosis/symptom? @ -osteomyelitis Acute, or Chronic, or Acute on Chronic? @ -acute Uncomplicated (without systemic symptoms) or Complicated (systemic symptoms)? @ -Complicated Side effects of treatment? @ -No Exacerbation, Progression, or Severe Exacerbation? @ -No Poses a threat to life or bodily function? How? (Chest pain, [place], [place], pneumonia, PE, COPD, DKA, ARF, appy, cholecystitis, CVA, Diverticulitis, Homicidal, Suicidal, threat to staff... and all critical care pts) @ -Yes - Lab Data Result diagrams: 01/01/23 22:28 01/01/23 22:28 Lab Results 01/01/23 01/01/23 Range/Units 22:28 22:28 WBC 7.5 (3.8-10.6) k/uL RBC 4.64 (4.30-5.90) m/uL Hgb 13.7 (13.0-17.5) gm/dL Hct 41.2 (39.0-53.0) % MCV 88.9 (80.0-100.0) fL MCH 29.5 (25.0-35.0) pg MCHC 33.2 (31.0-37.0) g/dL RDW 14.2 (11.5-15.5) % Plt Count 245 (150-450) k/uL MPV 7.2 Neutrophils % 60 % Lymphocytes % 25 % Monocytes % 8 % Eosinophils % 3 % Basophils % 1 % Neutrophils # 4.5 (1.3-7.7) k/uL Lymphocytes # 1.9 (1.0-4.8) k/uL Monocytes # 0.6 (0-1.0) k/uL Eosinophils # 0.2 (0-0.7) k/uL Basophils # 0.1 (0-0.2) k/uL Sodium 134 L (137-145) mmol/L Potassium 4.0 (3.5-5.1) mmol/L Chloride 105 (98-107) mmol/L Carbon Dioxide 24 (22-30) mmol/L Anion Gap 5 mmol/L BUN 11 (9-20) mg/dL Creatinine 0.69 (0.66-1.25) mg/dL Est GFR (CKD-EPI)AfAm >90 (>60 ml/min/1.73 sqM) Est GFR (CKD-EPI)NonAf >90 (>60 ml/min/1.73 sqM) Glucose 160 H (74-99) mg/dL Calcium 8.1 L (8.4-10.2) mg/dL Total Bilirubin 0.4 (0.2-1.3) mg/dL AST 29 (17-59) U/L ALT 24 (4-49) U/L Alkaline Phosphatase 79 (38-126) U/L Total Protein 6.1 L (6.3-8.2) g/dL Albumin 3.2 L (3.5-5.0) g/dL Disposition Clinical Impression: Osteomyelitis Disposition: ADMITTED IP TO THIS HOSP Condition: Fair Time of Disposition: 23:00
--- NOTE | 2023-01-01 22:12 | XR ---
EXAMINATION TYPE: XR toes RT DATE OF EXAM: 01/01/2023 COMPARISON: NONE HISTORY: Swelling TECHNIQUE: Three views are submitted. FINDINGS: The osseous structures are intact. There is no acute fracture or dislocation. There is moderate na rrowing the first MTP with hallux valgus deformity. Soft tissue edema is noted adjacent to the first digit. There is slight erosive change along the medial margin of the distal phalanx IMPRESSION: 1. Cellulitis. Findings suspicious for osteomyelitis distal phalanx first digit.
[2023-01-01] MEDS ORDERED: VANCOMYCIN IV PER PHARMACY 1 EACH MISC MISCELLANE PRN (22:21)
[2023-01-01] MEDS ORDERED: HYDROmorphone 1 MG/ML 1 ML SYRINGE IVP PRN (22:30)
[2023-01-01] MEDS ORDERED: VANCOMYCIN 1,500 MG in SODIUM CHLORIDE 0.9% 500 ML 500 ML IVPB STA (22:33)
[2023-01-01 22:42] LABS: ALT 24 U/L (4-49); AST 29 U/L (17-59); African American GFR (CKD) >90 (>60 ml/min/1.73 sqM); Albumin 3.2 g/dL (3.5-5.0); Alkaline Phosphatase 79 U/L (38-126); Anion Gap 5 mmol/L; Blood Urea Nitrogen 11 mg/dL (9-20); Calcium 8.1 mg/dL (8.4-10.2); Carbon Dioxide 24 mmol/L (22-30); Chloride 105 mmol/L (98-107); Glucose 160 mg/dL (74-99); Non-African American GFR(CKD) >90 (>60 ml/min/1.73 sqM); Sodium 134 mmol/L (137-145); Total Bilirubin 0.4 mg/dL (0.2-1.3); Total Protein 6.1 g/dL (6.3-8.2)
[2023-01-01 22:46] LABS: Basophils # (A) 0.1 k/uL (0-0.2); Basophils % (A) 1 %; Eosinophils # (A) 0.2 k/uL (0-0.7); Eosinophils % (A) 3 %; HCT 41.2 % (39.0-53.0); HGB 13.7 gm/dL (13.0-17.5); Lymphocytes # (A) 1.9 k/uL (1.0-4.8); Lymphocytes % (A) 25 %; MCH 29.5 pg (25.0-35.0); MCHC 33.2 g/dL (31.0-37.0); MCV 88.9 fL (80.0-100.0); Mean Platelet Volume 7.2; Monocytes # (A) 0.6 k/uL (0-1.0); Monocytes % (A) 8 %; Neutrophils # (A) 4.5 k/uL (1.3-7.7); Neutrophils % (A) 60 %; Platelet Count 245 k/uL (150-450); RBC 4.64 m/uL (4.30-5.90); RDW 14.2 % (11.5-15.5); WBC 7.5 k/uL (3.8-10.6)
[2023-01-01] MEDS ORDERED: NALOXONE 0.4 MG/ML 1 ML VIAL IV PRN (23:07)
[2023-01-01] MEDS ORDERED: SODIUM CHLORIDE 0.9% 1,000 ML IV SCH (23:15)
[2023-01-02] MEDS: KETOROLAC 15 MG/ML 1 ML VIAL IVP SCH ×2 (00:20→05:22)
[2023-01-02 01:07] VITALS: RESP 16
--- NOTE | 2023-01-02 04:12 | P.HPIM ---
History of Present Illness H&P Date: 01/01/23 Chief Complaint: Throbbing pain left big toe 62-year-old male no significant past medical history He comes in due to throbbing pain and swelling of his left big toe that has been going on for a week since he's been stopping it multiple times. He denies any prior injuries or infection he denies any fevers or chills he denies any diabetes or peripheral arterial disease He denies any open wounds or drainage however he noticed increased redness swelling and throbbing pain in his left big toe which has been getting worse over the past week. His difficult for him to wear shoes and to walk for which he came in seeking medical attention review of systems Pertinent positives as noted in HPI. All other systems were reviewed and are negative on exam Constitutional: No acute distress, conversant, pleasant Eyes: Anicteric sclerae, moist conjunctiva, Pupils equal round reactive to light ENMT: NC/AT Oropharynx clear, no erythema, or exudates Neck: Supple, no masses, or JVD No carotid bruits No thyromegaly Lungs: Clear to auscultation Clear to percussion Normal respiratory effort, no accessory muscle use Cardiovascular: Heart regular in rate and rhythm, No murmurs, gallops, or rubs No peripheral edema Abdominal: Soft Nontender, no guarding, rebound or rigidity Abdomen moving with respiration Normoactive bowel sounds No hepatomegaly, No splenomegaly No palpable mass No abdominal wall hernia noted Skin: Swelling and erythema of the left big toe with tenderness to the touch warm to the touch no drainage no open wounds Extremities: No digital cyanosis No clubbing Pedal pulses intact and symmetrical Radial pulses intact and symmetrical No calf tenderness Psychiatric: Alert and oriented to person, place and time Appropriate affect fair judgement Neuro Muscles Strength 5/5 in all 4 extremities Sensation to light touch grossly present throughout Cranial nerves II-XII grossly intact Lymphatics: no palpable cervical or supraclavicular lymph nodes Past Medical History Past Medical History: No Reported History History of Any Multi-Drug Resistant Organisms: None Reported Past Surgical History: Orthopedic Surgery Additional Past Surgical History / Comment(s): Right leg surgery with daphney placement. Left toe nail removal. Past Anesthesia/Blood Transfusion Reactions: No Reported Reaction Past Psychological History: No Psychological Hx Reported Smoking Status: Never smoker Past Alcohol Use History: None Reported Past Drug Use History: None Reported Medications and Allergies Home Medications Medication Instructions Recorded Confirmed Type No Known Home Medications 01/05/21 01/05/21 History Allergies Allergy/AdvReac Type Severity Reaction Status Date / Time Penicillins Allergy Rash/Hives Verified 01/01/23 20:56 Physical Exam Vitals: Vital Signs Temp Pulse Pulse Resp BP BP Pulse Ox 01/02/23 01:07 98.2 F 75 16 104/59 95 01/01/23 23:56 74 18 119/66 98 01/01/23 20:52 98.3 F 81 20 145/79 99 Intake and Output 01/01/23 01/01/23 01/02/23 14:59 22:59 06:59 Other: Voiding Method Urinal Weight 86.183 kg 86.183 kg Results CBC & Chem 7: 01/01/23 22:28 01/01/23 22:28 Labs: Abnormal Lab Results - Last 24 Hours (Table) 01/01/23 Range/Units 22:28 Sodium 134 L (137-145) mmol/L Glucose 160 H (74-99) mg/dL Calcium 8.1 L (8.4-10.2) mg/dL Total Protein 6.1 L (6.3-8.2) g/dL Albumin 3.2 L (3.5-5.0) g/dL Thrombosis Risk Factor Assmnt - Choose All That Apply Each Factor Represents 1 point: Obesity (BMI >25) Each Risk Factor Represents 2 Points: Age 61-74 years Thrombosis Risk Factor Assessment Total Risk Factor Score: 3 Thrombosis Risk Factor Assessment Level: Moderate Risk Assessment and Plan Assessment: 62-year-old male no significant past medical history coming in for redness and swelling of the left big toe after an injury a week ago discussed the case with the ED doctor and accepted the admission for cellulitis to rule out osteomyelitis of the left big toe Cellulitis of the left big toe rule out osteomyelitis X-ray of the left foot showing cellulitis and possible osteomyelitis of the d istal phalanx ID consultation Follow-up cultures Initiated on vancomycin Tylenol for fever Pain control with opiates Blood work unremarkable White count 7.5 hemoglobin 13.7 BUN 11 creatinine 0.69 potassium 4 Check ESR Check CRP Full code DVT prophylaxis heparin subcu 3 times a day
[2023-01-02 07:41] VITALS: BP 110/62; PULSE 79; TEMP 97.3
--- NOTE | 2023-01-02 09:58 | P.DS ---
Providers Date of admission: 01/01/23 22:49 Expected date of discharge: 01/02/23 Attending physician: Long Salvador MD Primary care physician: Stated None Hospital Course: THIS IS NOT A DISCHARGE SUMMARY, BUT A SUMMARY OF CARE RECEIVED NOTIFICATION ON 01/02/23 at 9:25 AM that patient left AGAINST MEDICAL ADVICE Cellulitis of great toe right foot concerning for osteomyelitis Hospital Course: Patient is a 62-year-old male with no reported past medical history per review of documentation in chart. He presented to the emergency department on 01/01/23 secondary to concerns of worsening infection of right great toe. He underwent evaluation and X-ray right foot showing cellulitis with findings suspicious of osteomyelitis of distal phalanx of first digit. Patient was then admitted under our services for treatment of osteomyelitis of the great toe and started on IV antibiotics with vancomycin. Received notification from RN on 01/02/23 at 9:25 AM the patient left AGAINST MEDICAL ADVICE stating he was refusing to stay anymore time in the hospital. Patient left prior to my personal assessment. Patient was seen and admitted by physician overnight. I did not personally assess this patient prior to his leaving AGAINST MEDICAL ADVICE. This document was prepared using [employer] dictation software. Please allow for errors in net developer architect while rare they do occur. Kee Carrizales NP rendered care for this patient independently, reviewed the findings and plan as documented in the note above. I did not physically speak with or examine the patient on this date. Patient Condition at Discharge: Undetermined Plan - Discharge Summary New Discharge Prescriptions: No Action No Known Home Medications Discharge Medication List No Known Home Medications 01/05/21 [History] Follow up Appointment(s)/Referral(s): None,Stated [Primary Care Provider] - 1-2 days Discharge Disposition: LEFT AGAINST MEDICAL ADVICE
[2023-01-02] MEDS ORDERED: VANCOMYCIN 1,500 MG in SODIUM CHLORIDE 0.9% 500 ML 500 ML IVPB SCH (12:00)
== END 2023-01-02 09:30 | disposition left against medical advice (07) ==
LOC: EC 20:39 → 6NMEDSUR 22:49
PROVIDERS: ADMIT Internal Medicine; ATTEND Internal Medicine
DX: L03.031 Cellulitis of right toe (principal); Z53.29 Procedure and treatment not carried out because of patient's decision for other reasons; E66.9 Obesity, unspecified; Z68.28 Body mass index [BMI] 28.0-28.9, adult; Z88.2 Allergy status to sulfonamides
CPT/HCPCS: 96376; 96365; 96366; 96375; 99284; 36415; 80053; 85652; 85025; 86140; 87040 ×2; 83036; 73660; G0378 ×2; J3370; J1885

== ENCOUNTER 2023-03-06 19:54 | Emergency (ER) | payer MEDICARE ==
[2023-03-06] MEDS ORDERED: ACETAMINOPHEN TAB 500 MG TAB PO STA (20:39)
[2023-03-06] MEDS ORDERED: DIPH,PERTUS(ACELL)TETVAC-LF 0.5 ML VIAL IM ONE (20:39)
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
[2023-03-06] MEDS ORDERED: MORPHINE SULFATE 2 MG/ML SYRINGE IVP ONE (21:14)
[2023-03-06] MEDS ORDERED: FLUORESCEIN STRIPS 1 MG STRIP LEFT EYE ONE (21:23)
[2023-03-06] MEDS ORDERED: PROPARACAINE 0.5% OPHTH DROPS 15 ML BTL LEFT EYE STA (21:23)
[2023-03-06] MEDS ORDERED: LIDOCAINE 1% INJ 10MG/ML (20 ML MDV) SQ ONE (21:28)
[2023-03-06 21:46] LABS: Basophils % (A) 0 %; Eosinophils # (A) 0.1 k/uL (0-0.7); Eosinophils % (A) 0 %; HCT 44.5 % (39.0-53.0); HGB 14.7 gm/dL (13.0-17.5); Lymphocytes # (A) 1.3 k/uL (1.0-4.8); Lymphocytes % (A) 8 %; MCH 29.2 pg (25.0-35.0); MCHC 32.9 g/dL (31.0-37.0); MCV 88.6 fL (80.0-100.0); Mean Platelet Volume 7.3; Monocytes # (A) 0.7 k/uL (0-1.0); Monocytes % (A) 5 %; Neutrophils # (A) 13.5 k/uL (1.3-7.7); Neutrophils % (A) 86 %; Platelet Count 222 k/uL (150-450); RBC 5.02 m/uL (4.30-5.90); RDW 14.6 % (11.5-15.5); WBC 15.8 k/uL (3.8-10.6)
[2023-03-06 21:58] LABS: ALT 24 U/L (4-49); AST 29 U/L (17-59); African American GFR (CKD) >90 (>60 ml/min/1.73 sqM); Albumin 3.5 g/dL (3.5-5.0); Alcohol <10 mg/dL; Alkaline Phosphatase 71 U/L (38-126); Anion Gap 9 mmol/L; Blood Urea Nitrogen 16 mg/dL (9-20); Calcium 8.8 mg/dL (8.4-10.2); Carbon Dioxide 23 mmol/L (22-30); Chloride 104 mmol/L (98-107); Glucose 149 mg/dL (74-99); Non-African American GFR(CKD) 80 (>60 ml/min/1.73 sqM); Potassium 4.1 mmol/L (3.5-5.1); Sodium 136 mmol/L (137-145); Total Bilirubin 0.5 mg/dL (0.2-1.3); Total Protein 6.4 g/dL (6.3-8.2)
[2023-03-06 22:15] LABS: Partial Thromboplastin Time 24.1 sec (22.0-30.0); Prothrombin Time 11.1 sec (10.0-12.5)
[2023-03-06 23:56] VITALS: BP 144/90; PULSE 76; RESP 20; TEMP 98.8
== END 2023-03-06 23:40 | disposition home or self-care (01) ==
LOC: EC 19:54
DX: S02.2XXA Fracture of nasal bones, initial encounter for closed fracture (principal); M47.812 Spondylosis without myelopathy or radiculopathy, cervical region; Z88.0 Allergy status to penicillin; Z23 Encounter for immunization; Y04.8XXA Assault by other bodily force, initial encounter
CPT/HCPCS: 36415; 93005; 86900; 86901; 80053; 85025; 85610; 85730; 86850; 72125; 70486; 70450; 90715; 99285; 90471; 96374; 12011; G0480; J2001; J2270; 80320

== ENCOUNTER 2023-06-13 03:55 | Emergency (ER) | payer MEDICARE ==
[2023-06-13 04:27] VITALS: RESP 18
[2023-06-13 05:34] LABS: Basophils # (A) 0.1 k/uL (0-0.2); Basophils % (A) 1 %; Eosinophils # (A) 0.2 k/uL (0-0.7); Eosinophils % (A) 2 %; HCT 49.9 % (39.0-53.0); HGB 16.6 gm/dL (13.0-17.5); Lymphocytes % (A) 23 %; MCH 29.2 pg (25.0-35.0); MCHC 33.3 g/dL (31.0-37.0); MCV 87.7 fL (80.0-100.0); Mean Platelet Volume 6.7; Monocytes # (A) 0.6 k/uL (0-1.0); Monocytes % (A) 7 %; Neutrophils # (A) 5.7 k/uL (1.3-7.7); Neutrophils % (A) 66 %; Platelet Count 294 k/uL (150-450); RBC 5.69 m/uL (4.30-5.90); RDW 14.5 % (11.5-15.5); WBC 8.6 k/uL (3.8-10.6)
[2023-06-13 05:47] LABS: ALT 23 U/L (4-49); AST 30 U/L (17-59); African American GFR (CKD) >90 (>60 ml/min/1.73 sqM); Albumin 4.1 g/dL (3.5-5.0); Alkaline Phosphatase 82 U/L (38-126); Anion Gap 7 mmol/L; Blood Urea Nitrogen 25 mg/dL (9-20); Calcium 9.1 mg/dL (8.4-10.2); Carbon Dioxide 26 mmol/L (22-30); Chloride 105 mmol/L (98-107); Glucose 108 mg/dL (74-99); Magnesium 1.9 mg/dL (1.6-2.3); Non-African American GFR(CKD) >90 (>60 ml/min/1.73 sqM); Sodium 138 mmol/L (137-145); Total Bilirubin 0.6 mg/dL (0.2-1.3); Total Protein 7.2 g/dL (6.3-8.2)
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
[2023-06-13 05:57] LABS: INR 1.1 (<1.2); Partial Thromboplastin Time 25.9 sec (22.0-30.0); Prothrombin Time 11.8 sec (10.0-12.5)
[2023-06-13] MEDS ORDERED: KETOROLAC 15 MG/ML 1 ML VIAL IVP STA (06:12)
[2023-06-13] MEDS ORDERED: SODIUM CHLORIDE 0.9% 1,000 ML IV STA (06:12)
--- NOTE | 2023-06-13 06:38 | ED ---
General Adult HPI - General Chief complaint: Chest Pain Stated complaint: abd pain chest pain Time Seen by Provider: 06/13/23 05:56 Source: patient, RN notes reviewed Mode of arrival: ambulatory Limitations: no limitations - History of Present Illness Initial comments: This is a 62-year-old male who presents to the emergency department for abdominal pain and chest pain. States that yesterday around noon he started to develop sharp pain in his upper abdomen. He was just wandering around his house at the time. Since then the pain has started to spread both up towards the chest and down towards the lower abdomen, but is most prominent in the epigas tric region. Denies any associated nausea or vomiting. He has no radiation of pain into any of the extremities or his back. Denies any history of similar symptoms in the past. He also has no personal or family history of cardiac problems. Pain has started to improve since it started. - Related Data Previous Rx's Medication Instructions Recorded Cephalexin [Keflex] 500 mg PO Q12HR 1 Days #2 cap 02/08/23 Acetaminophen-Codeine 300-30mg 1 tab PO Q4-6H PRN #10 tablet 03/06/23 [Tylenol #3] Allergies Allergy/AdvReac Type Severity Reaction Status Date / Time Penicillins Allergy Rash/Hives Verified 06/13/23 04:05 Review of Systems ROS Statement: Those systems with pertinent positive or pertinent negative responses have been documented in the HPI. ROS Other: All systems not noted in ROS Statement are negative. Past Medical History Past Medical History: No Reported History History of Any Multi-Drug Resistant Organisms: None Reported Past Surgical History: Orthopedic Surgery Additional Past Surgical History / Comment(s): Right leg surgery with daphney placement. Left toe nail removal. Past Anesthesia/Blood Transfusion Reactions: No Reported Reaction Past Psychological History: No Psychological Hx Reported Smoking Status: Never smoker Past Alcohol Use History: None Reported Past Drug Use History: None Reported General Exam Limitations: no limitations General appearance: alert, in no apparent distress Head exam: Present: atraumatic, normocephalic, normal inspection Respiratory exam: Present: normal lung sounds bilaterally. Absent: respiratory distress, wheezes, rales, rhonchi, stridor Cardiovascular Exam: Present: regular rate, normal rhythm, normal heart sounds. Absent: systolic murmur, diastolic murmur, rubs, gallop, clicks GI/Abdominal exam: Present: soft, tenderness (epigastric), normal bowel sounds. Absent: distended Neurological exam: Present: alert, oriented X3, CN II-XII intact Psychiatric exam: Present: normal affect, normal mood Skin exam: Present: warm, dry, intact, normal color. Absent: rash Course Vital Signs 06/13/23 06/13/23 06/13/23 04:03 06:05 08:06 Temperature 98.5 F 98.1 F Pulse Rate 83 75 70 Respiratory 18 18 18 Rate Blood Pressure 128/81 117/82 128/76 O2 Sat by Pulse 97 96 100 Oximetry Medical Decision Making - Medical Decision Making This is a 62-year-old male who presents to the emergency department for abdominal pain. Was pt. sent in by a medical professional or institution? @ -No Did you speak to anyone other than the patient for history? @ -No Did you review nursing and triage notes? @ -Yes, and I agree, it is accurate with regards to the patient's symptoms. Were old charts reviewed? @ -No Differential Diagnosis? @ -Differential Abdominal Pain Men: Appendicitis, cholecystitis, diverticulosis, ischemic bowel, pancreatitis, hepatitis, UTI, gastroenteritis, AAA, incarcerated hernia, bowel obstruction, constipation, inflammatory bowel, hepatitis, peptic ulcer disease, splenic infarction, perforated viscus, testicular torsion, this is not meant to be an all-inclusive list EKG interpreted by me (3pts min.)? @ -EKG interpreted by me demonstrating the following: Sinus rhythm. Ventricular rate 82 beats per minute, AR interval 166 ms, QRS duration 148 ms, QTC 415 milliseconds. X-rays interpreted by me (1pt min.)? @ -Chest x-ray obtained, my interpretation identifies no localized consolidations or infiltrates. CT interpreted by me (1pt min.)? @ -Not obtained U/S interpreted by me (1pt. min.)? @ -Gallbladder US obtained. My interpretation identifies cholelithiasis. What testing was considered but not performed? (CT, X-rays, U/S, labs)? Why? @ -None What meds were considered but not given? Why? @ -None Did you discuss the management of the patient with other professionals? @ -No Did you reconcile home meds? @ -No Was smoking cessation discussed for >3mins.? @ -No Was critical care preformed (if so, how long)? @ -No Were there social determinants of health that impacted care today? How? (Homelessness, low income, unemployed, alcoholism, drug addiction, transportat ion, low edu. Level, literacy, decrease access to med. care, senior care, rehab)? @ -No Was there de-escalation of care discussed even if they declined? (Discuss DNR or withdrawal of care, Hospice)? @ -No What co-morbidities impacted this encounter? (DM, HTN, Smoking, COPD, CAD, Cancer, CVA, Hep., AIDS, mental health diagnosis, sleep apnea, morbid obesity)? @ -None Was patient admitted / discharged? @ -Discharged. Lab work obtained and found to be unremarkable. Troponin negative. Chest x-ray reveals no acute process. On discussion with the patient, the pain is more so in his upper abdomen than his chest and was reproducible on examination. He was treated with Toradol and a gallbladder ultrasound was subsequently obtained for further evaluation of his symptoms. Gallbladder US reveals gallstones and sludge with borderline to mild wall thickening. Symptoms essentially resolved with Toradol and the patient felt substantially better and requested discharge home. Symptoms likely related to biliary colic. He is instructed to follow a low fat and bland diet for the mean time to reduce the risk of recurrence. Information for general surgery follow up provided, he is instructed to contact them for a follow up appointment. Patient discharged home in stable condition. Undiagnosed new problem with uncertain prognosis? @ -None Drug Therapy requiring intensive monitoring for toxicity (Heparin, Nitro, Insu ayaka, Cardizem)? @ -None Were any procedures done? @ -None Diagnosis/symptom? @ -Biliary colic Acute, or Chronic, or Acute on Chronic? @ -Acute Uncomplicated (without systemic symptoms) or Complicated (systemic symptoms)? @ -Uncomplicated Side effects of treatment? @ -None Exacerbation, Progression, or Severe Exacerbation] @ -Not applicable Poses a threat to life or bodily function? @ -Unlikely Return precautions reviewed in depth, the patient is instructed to return to the emergency department with any new, worsening, or concerning symptoms. Patient verbalized understanding. This case was discussed in detail with the attending ED physician, Dr. Franklin. Presentation, findings, and treatment plan discussed in detail as well. - Lab Data Result diagrams: 06/13/23 05:20 06/13/23 04:15 Lab Results 06/13/23 06/13/23 06/13/23 Range/Units 04:15 04:15 05:20 WBC 8.6 (3.8-10.6) k/uL RBC 5.69 (4.30-5.90) m/uL Hgb 16.6 (13.0-17.5) gm/dL Hct 49.9 (39.0-53.0) % MCV 87.7 (80.0-100.0) fL MCH 29.2 (25.0-35.0) pg MCHC 33.3 (31.0-37.0) g/dL RDW 14.5 (11.5-15.5) % Plt Count 294 (150-450) k/uL MPV 6.7 Neutrophils % 66 % Lymphocytes % 23 % Monocytes % 7 % Eosinophils % 2 % Basophils % 1 % Neutrophils # 5.7 (1.3-7.7) k/uL Lymphocytes # 2.0 (1.0-4.8) k/uL Monocytes # 0.6 (0-1.0) k/uL Eosinophils # 0.2 (0-0.7) k/uL Basophils # 0.1 (0-0.2) k/uL PT 11.8 (10.0-12.5) sec INR 1.1 (<1.2) APTT 25.9 (22.0-30.0) sec Sodium 138 (137-145) mmol/L Potassium 4.0 (3.5-5.1) mmol/L Chloride 105 (98-107) mmol/L Carbon Dioxide 26 (22-30) mmol/L Anion Gap 7 mmol/L BUN 25 H (9-20) mg/dL Creatinine 0.78 (0.66-1.25) mg/dL Est GFR (CKD-EPI)AfAm >90 (>60 ml/min/1.73 sqM) Est GFR (CKD-EPI)NonAf >90 (>60 ml/min/1.73 sqM) Glucose 108 H (74-99) mg/dL Calcium 9.1 (8.4-10.2) mg/dL Magnesium 1.9 (1.6-2.3) mg/dL Total Bilirubin 0.6 (0.2-1.3) mg/dL AST 30 (17-59) U/L ALT 23 (4-49) U/L Alkaline Phosphatase 82 (38-126) U/L Troponin I (0.000-0.034) ng/mL Total Protein 7.2 (6.3-8.2) g/dL Albumin 4.1 (3.5-5.0) g/dL 06/13/23 Range/Units 05:20 WBC (3.8-10.6) k/uL RBC (4.30-5.90) m/uL Hgb (13.0-17.5) gm/dL Hct (39.0-53.0) % MCV (80.0-100.0) fL MCH (25.0-35.0) pg MCHC (31.0-37.0) g/dL RDW (11.5-15.5) % Plt Count (150-450) k/uL MPV Neutrophils % % Lymphocytes % % Monocytes % % Eosinophils % % Basophils % % Neutrophils # (1.3-7.7) k/uL Lymphocytes # (1.0-4.8) k/uL Monocytes # (0-1.0) k/uL Eosinophils # (0-0.7) k/uL Basophils # (0-0.2) k/uL PT (10.0-12.5) sec INR (<1.2) APTT (22.0-30.0) sec Sodium (137-145) mmol/L Potassium (3.5-5.1) mmol/L Chloride (98-107) mmol/L Carbon Dioxide (22-30) mmol/L Anion Gap mmol/L BUN (9-20) mg/dL Creatinine (0.66-1.25) mg/dL Est GFR (CKD-EPI)AfAm (>60 ml/min/1.73 sqM) Est GFR (CKD-EPI)NonAf (>60 ml/min/1.73 sqM) Glucose (74-99) mg/dL Calcium (8.4-10.2) mg/dL Magnesium (1.6-2.3) mg/dL Total Bilirubin (0.2-1.3) mg/dL AST (17-59) U/L ALT (4-49) U/L Alkaline Phosphatase (38-126) U/L Troponin I <0.012 (0.000-0.034) ng/mL Total Protein (6.3-8.2) g/dL Albumin (3.5-5.0) g/dL - Radiology Data Radiology results: report reviewed, image reviewed Disposition Clinical Impression: Biliary colic, Cholelithiasis Disposition: HOME SELF-CARE Instructions (If sedation given, give patient instructions): Biliary Colic (ED), Gallstones (ED), Low Fat Diet (ED) Additional Instructions: Return to the emergency department with any new, worsening, or concerning symptoms. You need to follow a low fat and bland diet for the mean time, avoiding greasy and fatty foods, as this can cause symptoms to recur. Contact the general surgeon as listed below for a follow up appointment, as you will likely need your gallbladder out. Is patient prescribed a controlled substance at d/c from ED?: No Referrals: None,Stated [Primary Care Provider] - 1-2 days Nakul Martin MD [Medical Doctor] - 1-2 days Time of Disposition: 08:00
--- NOTE | 2023-06-13 07:44 | US ---
EXAMINATION TYPE: US gallbladder DATE OF EXAM: 06/13/2023 COMPARISON: NONE CLINICAL INDICATION: Male, 62 years old with history of Epigastric pain; Chest pain x 1 day TECHNIQUE: Multiple sonographic images of the right upper quadrant are obtained. FINDINGS: EXAM MEASUREMENTS: Liver Length: 15.3 cm Gallbladder Wall: 0.3 cm CBD: 0.5 cm Right Kidney: 11.4 x 4.7 x 4.8 cm MANAGER SIX SIGMA NOTES:bowel gas limits imaging Pancreas: wnl Liver: wnl Gallbladder: appears filled with shadowing stones and possible sludge, wall borderline Evidence for sonographic Alex's sign: no CBD: wnl Right Kidney: wnl IMPRESSION: The gallbladder is filled with gallstones and sludge material. Borderline to mild wall thickening.
[2023-06-13 08:21] VITALS: BP 128/76; PULSE 70; TEMP 98.1
== END 2023-06-13 08:17 | disposition home or self-care (01) ==
LOC: EC 03:55
DX: K80.50 Calculus of bile duct without cholangitis or cholecystitis without obstruction (principal)
CPT/HCPCS: 36415; 93005; 80053; 83735; 84484; 85025; 85610; 85730; 71046; 76705; 99285; 96374; 96361 ×2; J1885

== ENCOUNTER 2023-09-23 06:33 | Emergency (ER) | payer MEDICARE ==
[2023-09-23] MEDS: DIPHENOX-ATROP 2.5-0.025 MG 1 EACH TAB PO STA (07:31)
[2023-09-23] MEDS: SODIUM CHLORIDE 0.9% 1,000 ML IV STA (07:44)
[2023-09-23] MEDS: SODIUM CHLORIDE 0.9% 500 ML 500 ML IV STA (07:44)
[2023-09-23 08:20] LABS: Basophils % (A) 1 %; Eosinophils # (A) 0.1 k/uL (0-0.7); Eosinophils % (A) 1 %; HCT 47.5 % (39.0-53.0); HGB 15.3 gm/dL (13.0-17.5); Lymphocytes # (A) 1.1 k/uL (1.0-4.8); Lymphocytes % (A) 22 %; MCH 28.3 pg (25.0-35.0); MCHC 32.2 g/dL (31.0-37.0); Mean Platelet Volume 7.5; Monocytes # (A) 0.5 k/uL (0-1.0); Monocytes % (A) 10 %; Neutrophils # (A) 3.1 k/uL (1.3-7.7); Neutrophils % (A) 62 %; Platelet Count 252 k/uL (150-450); RDW 14.9 % (11.5-15.5)
[2023-09-23 08:21] VITALS: PULSE 73; TEMP 98.5
[2023-09-23 08:37] LABS: ALT 22 U/L (4-49); AST 29 U/L (17-59); African American GFR (CKD) >90 (>60 ml/min/1.73 sqM); Albumin 3.3 g/dL (3.5-5.0); Alkaline Phosphatase 75 U/L (38-126); Anion Gap 6 mmol/L; Blood Urea Nitrogen 18 mg/dL (9-20); Calcium 7.5 mg/dL (8.4-10.2); Carbon Dioxide 25 mmol/L (22-30); Chloride 106 mmol/L (98-107); Glucose 89 mg/dL (74-99); Lipase 75 U/L (23-300); Non-African American GFR(CKD) >90 (>60 ml/min/1.73 sqM); Potassium 3.6 mmol/L (3.5-5.1); Sodium 137 mmol/L (137-145); Total Bilirubin 0.6 mg/dL (0.2-1.3); Total Protein 6.2 g/dL (6.3-8.2)
--- NOTE | 2023-09-23 08:47 | ED ---
Nausea/Vomiting/Diarrhea HPI - General Chief complaint: Nausea/Vomiting/Diarrhea Stated complaint: Diarrhea Time Seen by Provider: 09/23/23 06:47 Source: patient, RN notes reviewed Mode of arrival: ambulatory Limitations: no limitations - History of Present Illness Initial comments: 62-year-old male presents emergency department complaint of diarrhea. Patient states that diarrhea for last 2 to 3 days states he goes every hour states it is loose and watery denies any recent antibiotic use denies fevers or chills no significant abdominal pain or cramping patient has any rectal bleeding denies any melena or hematochezia patient denies dysuria no other associated symptoms. - Related Data Previous Rx's Medication Instructions Recorded Cephalexin [Keflex] 500 mg PO Q12HR 1 Days #2 cap 02/08/23 Acetaminophen-Codeine 300-30mg 1 tab PO Q4-6H PRN #10 tablet 03/06/23 [Tylenol #3] Allergies Allergy/AdvReac Type Severity Reaction Status Date / Time Penicillins Allergy Rash/Hives Verified 09/23/23 06:45 Review of Systems ROS Statement: Those systems with pertinent positive or pertinent negative responses have been documented in the HPI. ROS Other: All systems not noted in ROS Statement are negative. Past Medical History Past Medical History: No Reported History History of Any Multi-Drug Resistant Organisms: None Reported Past Surgical History: Orthopedic Surgery Additional Past Surgical History / Comment(s): Right leg surgery with daphney placement. Left toe nail removal. Past Anesthesia/Blood Transfusion Reactions: No Reported Reaction Past Psychological History: No Psychological Hx Reported Smoking Status: Never smoker Past Alcohol Use History: None Reported Past Drug Use History: None Reported General Exam Limitations: no limitations General appearance: alert, in no apparent distress Head exam: Present: atraumatic, normocephalic, normal inspection Eye exam: Present: normal appearance, PERRL, EOMI. Absent: scleral icterus, conjunctival injection, periorbital swelling Respiratory exam: Present: normal lung sounds bilaterally. Absent: respiratory distress, wheezes, rales, rhonchi, stridor Cardiovascular Exam: Present: regular rate, normal rhythm, normal heart sounds. Absent: systolic murmur, diastolic murmur, rubs, gallop, clicks GI/Abdominal exam: Present: soft, normal bowel sounds. Absent: distended, tenderness, guarding, rebound, rigid Course Vital Signs 09/23/23 06:44 Temperature 98.5 F Pulse Rate 73 Respiratory 18 Rate Blood Pressure 111/73 O2 Sat by Pulse 98 Oximetry Medical Decision Making - Medical Decision Making Was pt. sent in by a medical professional or institution ([facility] Cm, STONEWORKER, urgent ca re, hospital, or fdc...) When possible be specific @ -No Did you speak to anyone other than the patient for history (EMS, parent, family, police, friend...)? What history was obtained from this source @ -No Did you review nursing and triage notes (agree or disagree)? Why? @ -I reviewed and agree with nursing and triage notes Were old charts reviewed (outside hosp., previous admission, EMS record, old EKG, old radiological studies, urgent care reports/EKG's, fdc records)? Report findings @ -No old charts were reviewed Differential Diagnosis (chest pain, altered mental status, abdominal pain women, abdominal pain men, vaginal bleeding, weakness, fever, dyspnea, syncope, he adache, dizziness, GI bleed, back pain, seizure, CVA, palpatations, mental health, musculoskeletal)? @ -Differential Abdominal Pain Men: Appendicitis, cholecystitis, diverticulosis, ischemic bowel, pancreatitis, hepatitis, UTI, gastroenteritis, AAA, incarcerated hernia, bowel obstruction, constipation, inflammatory bowel, hepatitis, peptic ulcer disease, splenic infarction, perforated viscus, testicular torsion, this is not meant to be an all-inclusive list EKG interpreted by me (3pts min.). @ -None X-rays interpreted by me (1pt min.). @ -None done CT interpreted by me (1pt min.). @ -None done U/S interpreted by me (1pt. min.). @ -None done What testing was considered but not performed or refused? (CT, X-rays, U/S, labs)? Why? @ -None What meds were considered but not given or refused? Why? @ -None Did you discuss the management of the patient with other professionals (professionals i.e. DE[facility] Cm, STONEWORKER, lab, RT, psych nurse, clinical social work aide, direct support staff member, teacher, aoc operations intelligence officer, immigration case worker)? Give summary @ -No Was smoking cessation discussed for >3mins.? @ -No Was critical care preformed (if so, how long)? @ -No Were there social determinants of health that impacted care today? How? (Aram elessness, low income, unemployed, alcoholism, drug addiction, transportation, low edu. Level, literacy, decrease access to med. care, retirement, rehab)? @ -No Was there de-escalation of care discussed even if they declined (Discuss DNR or withdrawal of care, Hospice)? DNR status @ -No What co-morbidities impacted this encounter? (DM, HTN, Smoking, COPD, CAD, Cancer, CVA, ARF, Chemo, Hep., AIDS, mental health diagnosis, sleep apnea, morbid obesity)? @ -None Was patient admitted / discharged? Hospital course, mention meds given and route, prescriptions, significant lab abnormalities, going to OR and other pertinent info. @ -Discharge laboratory studies unremarkable patient hydrated, patient has had no significant diarrhea here. Patient has no risk factors for C. difficile will be discharged in stable condition. Undiagnosed new problem with uncertain prognosis? @ -No Drug Therapy requiring intensive monitoring for toxicity (Heparin, Nitro, Insulin, Cardizem)? @ -No Were any procedures done? @ -No Diagnosis/symptom? @ -Acute diarrhea Acute, or Chronic, or Acute on Chronic? @ -Acute Uncomplicated (without systemic symptoms) or Complicated (systemic symptoms)? @ -Uncomplicated Side effects of treatment? @ -No Exacerbation, Progression, or Severe Exacerbation? @ -No Poses a threat to life or bodily function? How? (Chest pain, [place], [place], pneumonia, PE, COPD, DKA, ARF, appy, cholecystitis, CVA, Diverticulitis, Homicidal, Suicidal, threat to staff... and all critical care pts) @ -No - Lab Data Result diagrams: 09/23/23 08:12 09/23/23 08:12 Lab Results 09/23/23 09/23/23 Range/Units 08:12 08:12 WBC 5.0 (3.8-10.6) k/uL RBC 5.40 (4.30-5.90) m/uL Hgb 15.3 (13.0-17.5) gm/dL Hct 47.5 (39.0-53.0) % MCV 88.0 (80.0-100.0) fL MCH 28.3 (25.0-35.0) pg MCHC 32.2 (31.0-37.0) g/dL RDW 14.9 (11.5-15.5) % Plt Count 252 (150-450) k/uL MPV 7.5 Neutrophils % 62 % Lymphocytes % 22 % Monocytes % 10 % Eosinophils % 1 % Basophils % 1 % Neutrophils # 3.1 (1.3-7.7) k/uL Lymphocytes # 1.1 (1.0-4.8) k/uL Monocytes # 0.5 (0-1.0) k/uL Eosinophils # 0.1 (0-0.7) k/uL Basophils # 0.0 (0-0.2) k/uL Sodium 137 (137-145) mmol/L Potassium 3.6 (3.5-5.1) mmol/L Chloride 106 (98-107) mmol/L Carbon Dioxide 25 (22-30) mmol/L Anion Gap 6 mmol/L BUN 18 (9-20) mg/dL Creatinine 0.70 (0.66-1.25) mg/dL Est GFR (CKD-EPI)AfAm >90 (>60 ml/min/1.73 sqM) Est GFR (CKD-EPI)NonAf >90 (>60 ml/min/1.73 sqM) Glucose 89 (74-99) mg/dL Calcium 7.5 L (8.4-10.2) mg/dL Magnesium 2.0 (1.6-2.3) mg/dL Total Bilirubin 0.6 (0.2-1.3) mg/dL AST 29 (17-59) U/L ALT 22 (4-49) U/L Alkaline Phosphatase 75 (38-126) U/L Total Protein 6.2 L (6.3-8.2) g/dL Albumin 3.3 L (3.5-5.0) g/dL Lipase 75 (23-300) U/L Disposition Clinical Impression: Diarrhea Disposition: HOME SELF-CARE Condition: Stable Instructions (If sedation given, give patient instructions): Acute Diarrhea (ED) Additional Instructions: Please return to the Emergency Department if symptoms worsen or any other concerns. Is patient prescribed a controlled substance at d/c from ED?: No Referrals: None,Stated [Primary Care Provider] - 1-2 days Time of Disposition: 08:47
[2023-09-23] MEDS: DIPHENOX-ATROP STARTER PACK 8 TAB BTL PO STA (08:57)
[2023-09-23 09:19] VITALS: BP 121/72; RESP 16
== END 2023-09-23 09:03 | disposition home or self-care (01) ==
LOC: EC 06:33
DX: R19.7 Diarrhea, unspecified (principal); Z88.0 Allergy status to penicillin
CPT/HCPCS: 36415; 80053; 83690; 83735; 85025; 96360; 99284